=== PATIENT | female | born 1990 | race Caucasian/White ===

== ENCOUNTER 2021-03-30 22:36 | Emergency (ER) | payer OTHER, MEDICAID, SELFPAY ==
[2021-03-30 22:47] VITALS: BP 115/77; PULSE 79; RESP 14; TEMP 36.7; O2SAT 100
--- NOTE | 2021-03-31 00:30 | PC.NURSE ---
Pt remains in waiting room, cursing about wait time with another pt also waiting. no s/s of distress.
--- NOTE | 2021-03-31 00:37 | PC.NURSE ---
pt stated to this RN: I'm go take a walk outside. seen exiting ER without assist with steady, even, unassisted gait. No s/s of distress.
--- NOTE | 2021-03-31 01:15 | ED.GENADULT ---
HPI - General Adult General Chief complaint: Back Pain/Injury Stated complaint: back pain Time Seen by Provider: 03/31/21 01:13 Source: patient and RN notes reviewed Mode of arrival: ambulatory Limitations: no limitations History of Present Illness HPI narrative: Patient is a 31-year-old female who presents to emergency department for evaluation of left-sided back pain rating down the leg with history of sciatica patient denies any injury or trauma has been taking [id number] medications with minimal improvement presents per private vehicle in no distress does not appear uncomfortable patient does not have a primary care doctor at this time has had similar occurrences in the past Related Data Allergies Allergy/AdvReac Type Severity Reaction Status Date / Time iodine Allergy Unknown Rash Verified 03/30/21 23:54 SEAFOOD Allergy Severe Anaphylaxis Uncoded 03/30/21 23:54 Review of Systems Review of Systems: All systems reviewed & are unremarkable except as noted in HPI and below PMFSH Social History Social History (Updated 03/31/21 @ 01:16 by Enrique Fuentes PA-C) Smoking status: Never smoker Exam Narrative: Exam Narrative: GENERAL: Well-appearing, obese, and in no acute distress. HEAD: Normocephalic, atraumatic. EYES: PERRLA and EOMI. ENT: Nares clear, no rhinorrhea or epistaxis. Mucous membranes moist. NECK: Supple. No adenopathy or masses. CHEST: Clear to auscultation. No respiratory distress. No wheezes rales or rhonchi HEART: Regular rate and rhythm. No murmur heard. EXTREMITIES: Normal range of motion. No edema. Tenderness over the left SI joint SKIN: Warm, dry, no rash. NEURO: No focal deficits. Alert and oriented x3. Normal speech and gait. Cranial nerves II through XII grossly intact PSYCH: Normal mood and affect. Course Course Emergency Course: Patient evaluated in the emergency department for low back pain with history of sciatica will be discharged home with outpatient follow-up felt appropriate for outpatient reevaluation Vital Signs Vital signs: Vital Signs Temperature 98.0 F 03/30/21 22:47 Pulse Rate 79 03/30/21 22:47 Respiratory Rate 14 03/30/21 22:47 Blood Pressure 115/77 03/30/21 22:47 Pulse Oximetry 100 03/30/21 22:47 Temperature 98.0 F 03/30/21 22:47 Pulse Rate 79 07/19/21 22:47 Respiratory Rate 14 03/30/21 22:47 Blood Pressure 115/77 03/30/21 22:47 Pulse Oximetry 100 03/30/21 22:47 Medical Decision Making MDM Narrative Medical decision making narrative: Patients pain is positional in nature and localized to back without signs of cord compression or cauda equina based on neurological exam, skeletal exam and history. No fever or other significant factors to suggest osteomyelitis or spinal epidural abscess. No symptoms or signs to suggest pain is referred from abdominal or / cardiopulmonary sources. No pulsatile masses noted on exam. Patient ambulates with steady gait and is stable for outpatient management given case findings. Vital Signs Vital Signs: Vital Signs Temperature 98.0 F 03/30/21 22:47 Pulse Rate 79 03/30/21 22:47 Respiratory Rate 14 03/30/21 22:47 Blood Pressure 115/77 03/30/21 22:47 Pulse Oximetry 100 03/30/21 22:47 Temperature 98.0 F 03/30/21 22:47 Pulse Rate 79 03/30/21 22:47 Respiratory Rate 14 03/30/21 22:47 Blood Pressure 115/77 03/30/21 22:47 Pulse Oximetry 100 03/30/21 22:47 Discharge Plan Discharge Clinical Impression: Acute low back pain, Sciatica Patient Disposition: Home, Self-Care Condition: Stable Instructions: Antibiotic Form, Sciatica (ED) Additional Instructions: Medications as needed and prescribed. Limit lifting and bending. You may apply heat or cold to the area as needed. Follow up with your doctor for further care in the next 7 days. Contact your doctor or return to the emergency department if you develop problems with bladder or bowel functi
[2021-03-31 02:33] VITALS: BP 109/70; PULSE 84; RESP 20; O2SAT 96
[2021-03-31 03:39] VITALS: BP 102/69; PULSE 81; RESP 18; O2SAT 97
--- NOTE | 2021-03-31 04:15 | PC.NURSE ---
Attempting to print work note for pt. unable to print from triage printer. pt's primary RN notified that pt waiting for work note in wr.
--- NOTE | 2021-03-31 04:28 | PC.NURSE ---
Pt provied with work note.
== END 2021-03-31 03:45 | disposition home or self-care (01) ==
PROVIDERS: Emergency Provider Emergency Medicine
DX: M54.40 Lumbago with sciatica, unspecified side (principal)
CPT/HCPCS: 99283

== ENCOUNTER 2021-08-10 08:50 | Emergency (ER) | payer MEDICAID, SELFPAY ==
[2021-08-10 08:54] VITALS: BP 129/84; PULSE 100; RESP 18; TEMP 36.7; O2SAT 99
--- NOTE | 2021-08-10 10:01 | ED.GENADULT ---
HPI - General Adult General Chief complaint: Headache Stated complaint: Body Aches/headache. Time Seen by Provider: 08/10/21 09:16 Source: patient Mode of arrival: ambulatory Limitations: no limitations History of Present Illness HPI narrative: Patient is a 31-year-old female with chief complaint of headache, body aches that began on Tuesday. Patient reports that she was exposed at a job interview was appropriate 1 week ago. Patient states she does not have shortness of breath or chest pain. Patient reports that she has not seen oncology vaccination but has not received this taken. Patient reports she has a history of asthma however she has not had any wheezing, cough, shortness of breath or any other symptoms requiring use of her rescue inhaler. Patient states that she was told that she needs to be tested for Covid. Related Data Allergies Allergy/AdvReac Type Severity Reaction Status Date / Time iodine Allergy Unknown Rash Verified 08/10/21 09:04 SEAFOOD Allergy Severe Anaphylaxis Uncoded 08/10/21 09:04 Review of Systems Review of Systems: CONSTITUTIONAL: Reports body aches denies fever, chills, or sweats. EYES: Denies visual changes, redness, or discharge. ENT: Denies rhinorrhea, congestion, sore throat, or otalgia. CARDIOVASCULAR: Denies chest pain, palpitations, or edema. RESPIRATORY: Denies cough or dyspnea. GASTROINTESTINAL: Denies abdominal pain, nausea, vomiting, or diarrhea. GENITOURINARY: Denies dysuria or hematuria. SKIN: Denies rash or itching. MUSCULOSKELETAL: Denies back pain, joint pain, or myalgia. NEUROLOGIC: Reports headache denies numbness, dizziness, or weakness. PSYCHIATRIC: Denies anxiety or depression. [facility] Social History Social History (Updated 03/31/21 @ 01:16 by Enrique Fuentes PA-C) Smoking status: Never smoker Exam Narrative: GENERAL: Well-appearing, well-nourished, and in no acute distress. HEAD: Normocephalic, atraumatic. EYES: PERRLA and EOMI. NECK: Supple. No adenopathy or masses. Range of motion intact without rigidity. CHEST: Clear to auscultation. No respiratory distress. No wheezes rales or rhonchi. No tachypnea. No cough noted during exam. HEART: Regular rate and rhythm. No murmur heard. Normal peripheral pulses. EXTREMITIES: Normal range of motion. No edema. SKIN: Warm, dry, no rash. NEURO: No focal deficits. Alert and oriented x3. PSYCH: Normal mood and affect. Course Vital Signs Vital signs: Vital Signs Temperature 98.0 F 08/10/21 08:54 Pulse Rate 100 08/10/21 08:54 Respiratory Rate 18 08/10/21 08:54 Blood Pressure 129/84 08/10/21 08:54 Pulse Oximetry 99 08/10/21 08:54 Temperature 98.0 F 08/10/21 08:54 Pulse Rate 100 08/10/21 08:54 Respiratory Rate 18 08/10/21 08:54 Blood Pressure 129/84 08/10/21 08:54 Pulse Oximetry 99 08/10/21 08:54 Medical Decision Making MDM Narrative Medical decision making narrative: Discussed with patient the need to quarantine herself not being tested for Covid. Discussed the 24 to 72-hour window for Covid results. Instructed the patient on symptomatic treatment of her symptoms. Instructed patient return to emergency department if she develops any worsening or emergent symptoms including but not limited to shortness of breath, chest pain, persistent fevers vomiting or any other emergent symptoms. Patient does not have any fever, cough, hypoxia, shortness of breath or any symptoms that would require admission at this time. Vital Signs Vital Signs: Vital Signs Temperature 98.0 F 08/10/21 08:54 Pulse Rate 100 08/10/21 08:54 Respiratory Rate 18 08/10/21 08:54 Blood Pressure 129/84 08/10/21 08:54 Pulse Oximetry 99 08/10/21 08:54 Temperature 98.0 F 08/10/21 08:54 Pulse Rate 100 08/10/21 08:54 Respiratory Rate 18 08/10/21 08:54 Blood Pressure 129/84 08/10/21 08:54 Pulse Oximetry 99 08/10/21 08:54 Discharge Plan Discharge Clinical Impression: Contact with a
[2021-08-10 20:05] LABS: SARS-CoV-2 RNA PCR Negative
== END 2021-08-10 10:31 | disposition home or self-care (01) ==
PROVIDERS: Physician Assistant; Emergency Provider Emergency Medicine
DX: R51.9 Headache, unspecified (principal); Z20.822 Contact with and (suspected) exposure to COVID-19; J45.909 Unspecified asthma, uncomplicated
CPT/HCPCS: 99283; C9803; U0003; U0005

== ENCOUNTER 2022-04-29 02:12 | Emergency (ER) | payer BC, SELFPAY ==
--- NOTE | ~2022-04-29 | CT_ITS ---
EXAMINATION: CT abdomen pelvis wo con DATE: 04/29/2022 04:15 INDICATION: Right-sided abdominal pain TECHNIQUE: Computed tomography (CT) of the abdomen and pelvis was performed without intravenous contr ast. The dose-length product (DLP) was 1324.97 mGy-cm. Automated exposure control and iterative recon struction technique were employed. COMPARISON: 04/18/2009 FINDINGS: The lung bases are clear. The heart size is normal. The liver, spleen, pancreas, gallbladde r, and adrenal glands are normal. There is a 4 mm nonobstructing stone of the right kidney upper pole . There is cortical scarring peripheral to the stone. The left kidney is unremarkable. No stones are present in the ureters or bladder. There is no hydronephrosis or hydroureter. The appendix is normal. No pathologically enlarged abdominal or pelvic lymph nodes are identified. There is no free intraper itoneal gas or evidence of bowel obstruction. IMPRESSION: 1. Nonobstructing right nephrolithiasis. Reviewed, dictated and finalized at location A.
[2022-04-29 02:14] VITALS: BP 117/89; PULSE 86; RESP 18; TEMP 36.4; O2SAT 100
--- NOTE | 2022-04-29 02:23 | ED.ABDPAIN ---
HPI - Abdominal Pain General Chief Complaint: Abdominal Pain Stated Complaint: right side pain Time Seen by Provider: 04/29/22 02:15 Source: RN notes reviewed History of Present Illness HPI narrative: Patient presents emergency department from home for abdominal pain. Patient states abdominal pain began 2 days ago. The pain is located on the right side the abdomen and goes into the right flank is described as sharp and stabbing in nature she denies any fevers or chills nausea vomiting diarrhea or any other symptoms that she has been taking ibuprofen for the pain Related Data Allergies Allergy/AdvReac Type Severity Reaction Status Date / Time iodine Allergy Unknown Rash Verified 04/29/22 02:17 SEAFOOD Allergy Severe Anaphylaxis Uncoded 04/29/22 02:17 Review of Systems Review of Systems: Gen.: Denies fevers or chills ENT: Denies congestion Respiratory: Denies shortness of breath or cough CV: Denies chest pain or palpitations GI: See HPI denies burning, urgency, frequency or hematuria Musculoskeletal: Denies back pain or muscle pain Neuro: Denies numbness, tingling, weakness or focal weakness Skin: Denies rash Except as documented, all other systems reviewed and negative [facility] Past Medical History Medical History (Updated 04/29/22 @ 04:57 by Forrest Sanchez DO) Patient denies significant medical history Social History Social History Smoking status: Never smoker Exam Narrative: APPEARANCE: No acute distress, nontoxic, resting in bed HEENT: Normocephalic, atraumatic, OMM RESPIRATORY: No respiratory distress, clear to auscultation bilaterally with no rhonchi wheezing or rales CARDIOVASCULAR: RRR s murmur ABDOMINAL: Soft nondistended tender palpation right upper quadrant right lower quadrant no tenderness in left lower quadrant left lower quadrant no rebound or guarding MUSCULOSKELETAl: Moves all extremities. No clubbing, cyanosis or edema. NEURO: Awake and alert. Following commands, speech normal, no focal deficits SKIN:: Warm, dry. Normal Color PSYCHIATRIC: Normal affect/mood Course Course Emergency Course: Patient does have blood in her urine states she is finishing her menstrual cycle patient states that they are feeling much better at this time. States abdominal pain has resolved. Repeat abdominal exam shows the patient's abdomen to be soft and nontender. Discussed with patient results of workup and diagnosis. Discussed need for follow-up with primary care physician, reasons to return to the emergency department in proper use of medication. Patient understands and agrees to current treatment plan Vital Signs Vital signs: Vital Signs Temperature 97.6 F 04/29/22 02:14 Pulse Rate 86 04/29/22 02:14 Respiratory Rate 18 04/29/22 02:14 Blood Pressure 117/89 04/29/22 02:14 Pulse Oximetry 100 04/29/22 02:14 Oxygen Delivery Room Air 04/29/22 02:14 Temperature 97.6 F 04/29/22 02:14 Pulse Rate 86 04/29/22 02:14 Respiratory Rate 18 04/29/22 02:14 Blood Pressure 117/89 04/29/22 02:14 Pulse Oximetry 100 04/29/22 02:14 Oxygen Delivery Room Air 04/29/22 02:14 MDM - Abdominal Pain MDM Narrative Medical decision making narrative: Patient's abdomen is soft without significant pain or signs of surgical abdomen on serial exams. Lab and x-ray evaluations are reviewed and patient is felt to be a reasonable candidate for outpatient management. Patient was instructed as to limitations of x-ray and laboratory evaluation and encouraged to return to ED or primary physician for repeat exam in 12 hours if continued or worsening pain Lab Data Result diagrams: 04/29/22 03:01 04/29/22 03:01 Labs: Lab Results 04/29/22 04/29/22 04/29/22 Range/Units 03:01 03:01 03:57 WBC 11.2 H (4.5-10.0) K/mm3 RBC 4.73 (4.2-5.4) M/mm3 Hgb 12.5 (12.0-15.0) g/dL Hct 40.2 (37.0-47.0) % MCV 85.0
[2022-04-29] MEDS: SODIUM CHLORIDE 0.9% IV 1,000 ML 999 ML IV CONT (03:04)
[2022-04-29 03:16] LABS: Basophils Percent Auto 0.4 % (0.2-1.2); Eosinophils Absolute Auto 0.1 K/mm3 (0-0.3); Eosinophils Percent Auto 0.7 % (0-4.4); Hematocrit 40.2 % (37.0-47.0); Hemoglobin 12.5 g/dL (12.0-15.0); Immature Granulocyte Absolute 0.04 K/mm3 (0.00-0.031); Immature Granulocyte Percent A 0.4 % (0-0.5); Lymphocytes Absolute Auto 2.99 K/mm3 (0.9-3.2); Lymphocytes Percent Auto 26.7 % (18.3-44.2); Mean Corpuscular HGB Conc 31.1 g/dl (32-36); Mean Corpuscular Hemoglobin 26.4 pg (26-34); Monocytes Absolute Auto 0.6 K/mm3 (0.1-0.6); Monocytes Percent Auto 5.2 % (2.6-8.5); Neutrophils Absolute Auto 7.5 K/mm3 (1.3-6.7); Neutrophils Percent Auto 66.6 % (45.5-73.1); Platelet Count Result 356 k/mm3 (150-375); Red Blood Count 4.73 M/mm3 (4.2-5.4); Red Cell Distribution Width 14.2 % (11.5-14.5); White Blood Count 11.2 K/mm3 (4.5-10.0)
[2022-04-29 03:37] LABS: Alanine Aminotransferase 28 U/L (6-35); Albumin Level 5.1 g/dL (3.5-5.1); Alkaline Phosphatase 90 U/L (38-126); Anion Gap 12 mmol/L (8-16); Aspartate Amino Transferase 41 U/L (14-36); Bilirubin,Total 0.6 mg/dL (0.2-1.3); Blood Urea Nitrogen 14 mg/dL (7-17); Calcium 9.3 mg/dL (8.4-10.2); Carbon Dioxide 26 mmol/L (22-30); Chloride 104 mmol/L (98-107); Estimated CRCL calculation 101 ml/min; Estimated Glomerular Filt Rate > 60; Glucose 106 mg/dL (65-110); Lipase 59 U/L (23-300); Potassium 4.2 mmol/L (3.4-5.0); Sodium 142 mmol/L (137-145)
[2022-04-29 04:10] LABS: Appearance Urine Clear (Clear); Bilirubin Urine 2+ (Negative); Blood Urine 3+ (Negative); Glucose Urine UA Negative (Negative); Ketones Urine 1+ mg/dL (Negative); Leukocyte Esterase Ur Negative LEU/UL (Negative); Nitrate Urine Negative (Negative); Protein Urine 2+ mg/dL (Negative); Specific Grav Ur >= 1.030 (1.001-1.035); Urobilinogen Urine 0.2 mg/dL (<2.0); pH Urine 5.5 (5.0-9.0)
[2022-04-29 04:16] LABS: Add Urine Microscopic? YES; Color Urine Light Red (Yellow)
[2022-04-29 04:23] LABS: Bacteria Urine Trace /hpf; Mucus Urine Moderate /lpf; RBC Urine >75 /hpf (0-2); Squamous Epithelial Cell Urine Many /hpf (Few)
[2022-04-29 05:03] VITALS: BP 99/70; PULSE 67; RESP 16; O2SAT 98
== END 2022-04-29 05:16 | disposition home or self-care (01) ==
PROVIDERS: Emergency Provider Emergency Medicine
DX: R10.9 Unspecified abdominal pain (principal)
CPT/HCPCS: 36415; 74176; 80053; 81001; 81025; 83690; 85025; 87077; 87086; 87088; 96361; 96374; 99284; J0131; J7030

== ENCOUNTER 2022-10-13 08:26 | Emergency (ER) | payer BC, SELFPAY ==
--- NOTE | ~2022-10-13 | XR_ITS ---
EXAMINATION: XR knee RT min 4V DATE: 10/13/2022 13:07 INDICATION: Right knee pain TECHNIQUE: Four views of the right knee were obtained. COMPARISON: None. FINDINGS: Alignment is normal. No fracture or osteochondral lesion. There is mild tricompartmental os teoarthritis characterized by tiny marginal osteophytes. No joint effusion/synovitis. Soft tissues a re unremarkable. IMPRESSION: 1. No acute osseous abnormality. Reviewed, dictated and finalized at location B. [employer]
[2022-10-13 08:27] VITALS: BP 140/86; PULSE 98; RESP 16; TEMP 37; O2SAT 100
--- NOTE | 2022-10-13 09:06 | PC.NURSE ---
KAYLYNN FROM DR GILL FOR MOTRIN 600MG PO X1
--- NOTE | 2022-10-13 11:08 | ED.LOWEXIN ---
HPI - Extremity Injury (Lower) General Chief Complaint: Extremity Injury, Lower Stated Complaint: right knee pain Time Seen by Provider: 10/13/22 08:38 Source: RN notes reviewed History of Present Illness HPI Narrative: Patient presents emergency department from home for right knee pain. Patient states that symptoms began approximately 2 days ago. The pain is located to the right medial knee and does not radiate described as aching in nature states the pain is worse with bending and with walking. She denies any known injury. She denies any swelling of the knee she denies any redness of the knee she denies any pain in the hip or ankle states she has sprained that knee before in the past she states she did not take anything for pain today denies any numbness or tingling Related Data Allergies Allergy/AdvReac Type Severity Reaction Status Date / Time iodine Allergy Unknown Rash Verified 04/29/22 02:17 SEAFOOD Allergy Severe Anaphylaxis Uncoded 04/29/22 02:17 Review of Systems Review of Systems: Gen.: Denies fevers or chills Musculoskeletal: See HPI Neuro: Denies numbness, tingling, weakness Skin: Denies rash Endo: Denies DM PMFSH Past Medical History Medical History Patient denies significant medical history Social History Social History Smoking status: Never smoker Exam Narrative: APPEARANCE: No acute distress, nontoxic, resting in bed Eyes: EOMI HEENT: Normocephalic, atraumatic, RESPIRATORY: No respiratory distress MUSCULOSKELETAl: Tender palpation over the right medial knee no swelling or ecchymosis present no overlying erythema no tenderness over the anterior lateral or posterior knee pain with flexion of the knee greater than 45 degrees no tenderness of the right ankle or hip dorsalis pedis pulse 2+ neurovascular intact NEURO: Awake and alert. Following commands, speech normal, no focal deficits SKIN:: Warm, dry. Normal Color no rash or lesions Course Course Emergency Course: Discussed with patient results of workup and diagnosis. Discussed need for follow-up with primary care, proper use of medication, and reasons to return to the emergency department. Patient understands and agrees to current treatment plan Vital Signs Vital signs: Vital Signs Temperature 98.6 F 10/13/22 08:27 Pulse Rate 98 10/13/22 08:27 Respiratory Rate 16 10/13/22 08:27 Blood Pressure 140/86 10/13/22 08:27 Pulse Oximetry 100 10/13/22 08:27 Temperature 98.6 F 10/13/22 08:27 Pulse Rate 98 10/13/22 08:27 Respiratory Rate 16 10/13/22 08:27 Blood Pressure 140/86 10/13/22 08:27 Pulse Oximetry 100 10/13/22 08:27 MDM - Extremity Injury (Lower) MDM Narrative Medical decision making narrative: Patient?s injury is consistent with muscular skeletal etiology. No signs of neurologic or vascular compromise to exam. Compartments are soft without signs of compartment syndrome. Pain is consistent with exam and injury Imaging Data Radiologist's impression: Right knee x-ray read by radiology during downtime shows no acute process Discharge Plan Discharge Clinical Impression: Right knee sprain Patient Disposition: Home, Self-Care Condition: Stable Instructions: Antibiotic Form, Knee Sprain (ED) Additional Instructions: Return for increasing pain numbness or tingling the extremities or any other symptoms of concern Prescriptions: New ibuprofen 600 mg tablet 600 mg PO TID PRN (Reason: pain) Qty: 14 0RF No Action cyclobenzaprine 10 mg tablet 10 mg PO TID PRN (Reason: muscle spasm) Qty: 14 0RF lidocaine 5 % adhesive patch,medicated 1 patch topical DAILY Qty: 1 0RF Rx Instructions: leave on most painful area for up to 12 hrs, dispense one box ibuprofen [IBU] 600 mg tablet 600 mg PO QID PRN (Reason: fever or pain) Qty: 7 0RF famotidine [Pepcid AC] 20 mg
[2022-10-13 11:42] VITALS: BP 140/90; PULSE 80; RESP 17; O2SAT 98
== END 2022-10-13 11:43 | disposition home or self-care (01) ==
PROVIDERS: Emergency Provider Emergency Medicine
DX: S83.91XA Sprain of unspecified site of right knee, initial encounter (principal); X58.XXXA Exposure to other specified factors, initial encounter
CPT/HCPCS: 73564; 99283

== ENCOUNTER 2024-09-26 07:25 | Emergency (ER) | payer BC, SELFPAY ==
[2024-09-26 07:30] VITALS: BP 115/73; PULSE 92; RESP 18; TEMP 36.4; O2SAT 98
--- NOTE | 2024-09-26 09:21 | ED_ITS ---
HPI - Fall General Chief Complaint: Fall Stated Complaint: 32 weeks , fell on ice Time Seen by Provider: 09/26/24 08:02 History of Present Illness HPI Narrative: Patient is a 34-year-old female who is 32 weeks that presents ER after a slip and fall. Slipped falling backwards directly onto her back. Did not strike her head or lose consciousness. She has been feeling the baby move. She has no vaginal bleeding. 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 She d id take some Tylenol earlier today. No additional concerns. Denies any lower extremity numbness or weakness. No saddle anesthesia. She did not land on her abdomen or strike her abdomen. Related Data Allergies Allergy/AdvReac Type Severity Reaction Status Date / Time iodine Allergy Unknown Rash Verified 04/29/22 02:17 SEAFOOD Allergy Severe Anaphylaxis Uncoded 04/29/22 02:17 Review of Systems Constitutional: Constitutional: Reports no additional constitutional complaints Musculoskeletal: Musculoskeletal: Reports back pain, Denies arthralgias and Denies joint swelling Integumentary/Breasts: Skin/Breast: Reports system reviewed and no additional complaints, except as docu Neurologic: Reports system reviewed and no additional complaints, except as documented PMFSH Past Medical History Medical History Patient denies significant medical history Social History Social History Smoking status: Never smoker Exam Narrative: GENERAL: Well-appearing, well-nourished, and in no acute distress. HEAD: Normocephalic, atraumatic. ENT: Mucous membranes moist. CHEST: Clear to auscultation. No respiratory distress. HEART: Regular rate and rhythm. Normal peripheral pulses. ABDOMEN: Soft, nontender, gravid uterus palpated above the umbilicus consistent with reported gestation. movement palpated. Back: No midline tenderness the T/L-spine. Mild paraspinal muscle tenderness on left side near L2. No bruising or abrasions. EXTREMITIES: Normal range of motion. No edema. NEURO: Alert and oriented x3. PSYCH: Normal mood and affect. Course Course Emergency Course: Patient given reassurance. heart tones identified, feel heart rate in the 170's. Recommend Tylenol and rest for home. Follow-up with Ob as needed. Imaging deferred due to and desire to not expose fetus to radiation. Vital Signs Vital signs: Vital Signs Temperature 97.6 F 09/26/24 07:30 Pulse Rate 92 09/26/24 07:30 Respiratory Rate 18 09/26/24 07:30 Blood Pressure 115/73 09/26/24 07:30 Pulse Oximetry 98 09/26/24 07:30 Oxygen Delivery Room Air 09/26/24 07:30 Temperature 97.6 F 09/26/24 07:30 Pulse Rate 92 09/26/24 07:30 Respiratory Rate 18 09/26/24 07:30 Blood Pressure 115/73 09/26/24 07:30 Pulse Oximetry 98 09/26/24 07:30 Oxygen Delivery Room Air 09/26/24 07:30 Discharge Plan Discharge Clinical Impression: Low back pain Patient Disposition: Home, Self-Care Condition: Stable Instructions: Back Pain (ED) Additional Instructions: Please return to the emergency department if you develop severe pain that is not controlled by pain medications or if you are unable to walk because of pain or weakness. Return to the emergency department immediately if you develop fevers, loss of bowel or bladder control (dribbling of urine or having accidents you wouldn't normally have), inability to urinate, numbness of your genital or anal area, or weakness/numbness of your legs or arms as these could all be signs of a serious medical emergency. Take Tylenol 650 mg every 6 hours over the next 3-5 days for your pain. Patient Language: Albanian Prescriptions: No Action cyclobenzaprine 10 mg tablet 10 mg PO TID PRN (Reason: muscle spasm) Qty: 14 0RF lidocaine 5 % adhesive patch,medicated 1 patch topical DAILY Qty: 1 0RF Rx Instructions: leave on most painful area for up to 12 hrs, dispense one box ibuprofen [IBU] 600 mg tablet 600 mg PO QID PRN (Reason: fever or pain) Qty: 7 0RF famotidine [Pepcid AC] 20 mg tablet 20 mg PO DAILY Qty: 14 0RF dicyclomine 20 mg tablet 20 mg PO TID PRN (Reason: Abdominal cramping) Qty: 10 0RF ibuprofen 600 mg tablet 600 mg PO TID PRN (Reason: pain) Qty: 14 0RF Follow-up/Referrals: PHYSICIAN,[employer] [Primary Care Provider] - Robert Block MD [Physician] - 1 Week Stand Alone Forms: Work/School Release IP
== END 2024-09-26 10:39 | disposition home or self-care (01) ==
PROVIDERS: Emergency Provider Emergency Medicine
DX: M54.50 Low back pain, unspecified (principal); O9A.213 Injury, poisoning and certain other consequences of external causes complicating pregnancy, third trimester; Z3A.32 32 weeks gestation of pregnancy; W01.0XXA Fall on same level from slipping, tripping and stumbling without subsequent striking against object, initial encounter
CPT/HCPCS: 99282

== ENCOUNTER 2024-10-19 15:36 | Observation (INO) | payer BC, SELFPAY ==
[2024-10-19] VITALS (8 sets, daily range): BP systolic 121–143; BP diastolic 77–90; PULSE 77–89; BMI 46.6
--- OUTSIDE RECORDS SUMMARY | 2024-10-19 15:47 | XMS_ITS | Clinical Summary ---
Author Organization [facility] Address [address] [place] [phone] Phone Care Team Providers Care Chief Architect Name Role Phone Provider, None Primary Care Provider Unavailabl e Social History Tobacco Use Types Packs/Day Years Used Date Smoking Tobacco: Never Assessed Comments Unknown Sex and Gender Information Value Date Recorded Sex Assigned at Not on file Legal Sex Female 11:38 AM CDT Gender Identity Not on file Sexual Orientation Not on file Plan of Treatment Health Maintenance Due Date Last Done Comments Hepatitis C Virus (HCV) Screening 1992 TdaP Immunization 1992 Hepatitis B Immunization (1 of 3 - 19+ 3-dose series) 01/04/2011 Pap Smear 01/04/2013 Cervical Cancer Screening (CCS) 01/04/2022 HPV/Cotest 01/04/2022 Influenza Immunization (#1) 2024 SARS-COV-2 Immunization ( season) 2024 Respiratory Syncytial Virus (RSV) Immunization (Adult) (1 - 1-dose 75+ series) 01/04/2067 Meningococcal Immunization (ACWY) Aged Out No longer eligible based on patient's age to complete this topic Pneumococcal Immunization Combined Aged Out No longer eligible based on patient's age to complete this topic Rotavirus Immunization Aged Out No lo nger eligible based on patient's age to complete this topic Care Teams Chief Architect Relationship Specialty Start Date End Date Provider, Alejandrina SHERWOOD PCP - General 05/30/24
--- OUTSIDE RECORDS SUMMARY | 2024-10-19 15:48 | XMS_ITS | Data Portability ---
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 Not available 09/10/2024 11:26:08 10/02/2024 10/02/2024 32 6/7 weeks, good spirits Not available 10/02/2024 14:55:07 10/16/2024 10/16/2024 34 6/7 weeks first baby elevated BP today ; to L&D for BP check Not available 10/16/2024 11:30:56 Plan of Treatment Reminders Order Date Submit Date Provider Last Modified By Organization Details Last Modified Time Details Appointments OB 15 2024 10:45A M Oj Garrett MD Not available Not available Not available Lab urinalysi s, dipstick 2023 024 In-Office Order, Internal Use Only DO Not Attach Compendium DO Not Attach Compendium, Do Not Delete/merge, [id number] 07/23/2024 12:06:03 urinalysi s, dipstick 2023 024 In-Office Order, Internal Use Only DO Not Attach Compendium DO Not Attach Compendium, Do Not Delete/merge, [id number] 08/20/2024 11:24:59 urinalysi s, dipstick 2023 024 In-Office Order, Internal Use Only DO Not Attach Compendium DO Not Attach Compendium, Do Not Delete/merge, [id number] 09/10/2024 11:26:09 urinalysi s, dipstick 2024 025 In-Office Order, Internal Use Only DO Not Attach Compendium DO Not Attach Compendium, Do Not Delete/merge, [id number] 10/02/2024 14:55:08 urinalysi s, dipstick 2024 025 In-Office Order, Internal Use Only DO Not Attach Compendium DO Not Attach Compendium, Do Not Delete/merge, [id number] 10/16/2024 11:30:57 streptoco ccus group B DNA 2024 025 [facility] [address], [address], [address], 10/18/2024 16:13:47 Referral None recorded. Procedures None recorded. Surgeries None recorded. Imaging None recorded. Medication Orders None recorded. Patient TargetsNo targets recorded. Patient Instructions Encounter Date Encounter Id Patient Instructions Last Modified By Organization Details Last Modified Time 10/16/2024 [id number] tetanus and diphtheria booster: care instructions Not available 10/16/2024 11:30:57 Reason for Referral None Reported. Results Created Date Observation Date Name Description Value Unit Range Abnormal Flag Note LastModifiedBy Organization Detail LastModifiedTime 07/02/2007/02/2024 urina lysis , dipst ick Protein Negati ve Not Available In-Office Order Internal Use Only DO Not Attach Compendium DO Not Attach Compendium, Do Not Delete/merge, [id number] 07/02/2024 12:03:10 07/02/20 24 07/02/2024 urina lysis , dipst ick Glucose Negati ve Not Available In-Office Order Internal Use Only DO Not Attach Compendium DO Not Attach Compendium, Do Not Delete/merge, [id number] 07/02/2024 12:03:10 07/23/20 24 07/23/2024 urina lysis , dipst ick Protein Negati ve Not Available In-Office Order Internal Use Only DO Not Attach Compendium DO Not Attach Compendium, Do Not Delete/merge, [id number] 07/19/2024 13:47:09 07/23/20 24 07/23/2024 urina lysis , dipst ick Glucose Negati ve Not Available In-Office Order Internal Use Only DO Not Attach Compendium DO Not Attach Compendium, Do Not Delete/merge, [id number] 07/19/2024 13:47:09 08/20/20 24 08/21/2024 HGB+H CT hemoglobin 10.4 g/dL 11.1-1 5.9 below low normal Not Available [facility] ([facility]) [address] [facility], [place], [address], 08/21/2024 07:14:16 08/20/20 24 08/21/2024 HGB+H CT hematocrit 32.7 % 34.0-4 6.6 below low normal Not Available [facility] ([facility]) [address] [place], [address], 08/21/2024 07:14:16 08/20/20 24 08/21/2024 GEST. DIABE AMAN 1-HR SCREE N gestational diabetes screen 167 mg/dL 70-139 above high normal Accor ding to ADA, a gluco se thres hold of >139 mg/dL after 50-gr am load ident ifies appro ximat dinah 80% of women with gesta gabriela l diabe aman melli tus, while the sensi tivit y is furth er incre ased to appro ximat dinah 90% by a thres hold of >129 mg/dL . Not Available [facility] ([facility]) [address] [facility], [place], [address], 08/21/2024 11:14:17 08/20/20 24 08/21/2024 ANTIB HARPAL SCREE N antibody screen NEGATI VE negati ve Not Available [facility] ([facility]) [address] [facility], [place], [address], 08/21/2024 11:14:18 08/20/20 24 08/21/2024 RPR, RFX QN RPR/C ONFIR M TP RPR NON REACTI VE nonrea ctive Not Available [facility] ([facility]) [address] [facility], [place], [address], 08/21/2024 11:14:20 08/20/20 24 08/21/2024 HIV AB/P2 4 AG WITH REFLE X HIV Ab/P24 Ag screen NON REACTI VE nonrea ctive HIV-1 /HIV- 2 antib odies and HIV-1 p24 antig en were NOT detec anne marie. There is no labor atory evide nce of HIV infec tion. HIV Negat gordo Not Available [facility] ([facility]) [address] [facility], [place], [address], 08/21/2024 11:14:21 08/20/20 24 08/20/2024 urina lysis , dipst ick Protein Negati ve Not Available In-Office Order Internal Use Only DO Not Attach Compendium DO Not Attach Compendium, Do Not Delete/merge, [id number] 08/16/2024 14:29:15 08/20/20 24 08/20/2024 urina lysis , dipst ick Glucose Negati ve Not Available In-Office Order Internal Use Only DO Not Attach Compendium DO Not Attach Compendium, Do Not Delete/merge, [id number] 08/16/2024 14:29:15 09/10/20 24 09/10/2024 urina lysis , dipst ick Protein 30 Not Available In-Office Order Internal Use Only DO Not Attach Compendium DO Not Attach Compendium, Do Not Delete/merge, [id number] 09/06/2024 15:20:08 09/10/20 24 09/10/2024 urina lysis , dipst ick Glucose Negati ve Not Available In-Office Order Internal Use Only DO Not Attach Compendium DO Not Attach Compendium, Do Not Delete/merge, [id number] 09/06/2024 15:20:08 10/02/19 25 10/02/2024 urina lysis , dipst ick Protein Trace Not Available In-Office Order Internal Use Only DO Not Attach Compendium DO Not Attach Compendium, Do Not Delete/merge, [id number] 09/28/2024 16:04:56 10/02/19 25 10/02/2024 urina lysis , dipst ick Glucose Negati ve Not Available In-Office Order Internal Use Only DO Not Attach Compendium DO Not Attach Compendium, Do Not Delete/merge, [id number] 09/28/2024 16:04:56 10/16/19 25 10/18/2024 STREP GP B ANDREE strep gp B ANDREE NEGATI VE negati ve Cente rs for Disea se Contr ol and Preve ntion (CDC) and Son[facility] can Congr ess of Obste trici ans and Gynec ologi sts (ACOG ) guide lines for preve ntion of perin atal group B strep tococ long (GBS) disea se speci fy co-co llect ion of a vagin al and recta l swab speci men to maxim ize sensi tivit y of GBS detec tion. Per the CDC and ACOG, swabb ing both the lower vagin a and rectu m subst antia lly incre ases the yield of detec tion jack red with sampl ing the vagin a alone . Penic illin G, ampic illin , or cefaz vicki are indic ated for intra partu m proph ylaxi s of perin atal GBS colon izati on. Refle x susce ptibi lity testi ng shoul d be perfo rmed prior to use of clind amyci n only on GBS isola aman from penic illin -[place] rgic women who are consi dered a high risk for anaph ylaxi s. Treat ment with vanco mycin witho ut addit ional testi ng is warra nted if resis tance to clind tosin n is noted . Not Available [facility] ([facility]) [address] [facility], [place], [address], 10/18/2024 16:13:47 10/16/19 25 10/16/2024 urina lysis , dipst ick Protein Trace Not Available In-Office Order Internal Use Only DO Not Attach Compendium DO Not Attach Compendium, Do Not Delete/merge, [id number] 10/12/2024 14:45:34 10/16/19 25 10/16/2024 urina lysis , dipst ick Glucose Negati ve Not Available In-Office Order Internal Use Only DO Not Attach Compendium DO Not Attach Compendium, Do Not Delete/merge, [id number] 10/12/2024 14:45:34 07/25/20 24 07/10/2024 US, obste tric, mater nal evalu ation + anato my No observ ation record ed. [facility] ([facility]) [address] [place], [address], 07/26/2024 13:53:40 07/26/20 24 07/18/2024 US, obste tric, mater nal evalu ation + anato my No observ ation record ed. [facility] ([facility]) [address] [place], [address], 07/26/2024 13:26:35 07/26/20 24 07/10/2024 US, obste tric, mater nal evalu ation + anato my No observ ation record ed. [facility] ([facility]) [address] [place], [address], 07/26/2024 13:26:44 Result Notes None recorded. Problems Name Problem SNOMED Code Status Onset Date Resolution Date Notes Provider Name and Address Organization Details Recorded Time 08512406 Active 2023 PAUL Pen[place], [place] - [facility] 09:44:30 Anemia 495161141 Completed 202304/18/2024 Serina Obrien RMA [place] - [facility] 4 10:12:31 Asthma 258850387 Active 2023 Serina Obrien RMA [place] [facility] 4 10:12:57 Polycystic ovary syndrome 667500268 Active 2023 Serina Obrien [place] [facility] 4 10:14:49 Urinary tract infection in 001614389 Active Serina Obrien RMA [place] [facility] 5 14:35:00 Localized eruption of skin 076159388 Active Serina Obrien R[place] [facility] 5 14:35:31 Problem Notes None recorded. Procedures Surgical History Date Name Laterality Status Provider Name and Address Organization Details Recorded Time 04/18/20 Date of Last Pap Smear completed PAUL Penaloza [place] [facility] 05/10/2024 09:55:50 Tonsillectomy completed SUMI PenalozaA [place] [facility] 04/18/2024 10:06:36 Imaging Results Imaging Date Name Status LastModified by Organiz ation Details LastModified Time 07/10/2024 US, obstetric, maternal evaluation + anatomy completed [facility] ([facility]) [address] [place], [address], 07/26/2024 13:53:40 07/18/2024 US, obstetric, maternal evaluation + anatomy completed [facility] ([facility]) [address] [place], [address], 07/26/2024 13:26:35 07/10/2024 US, obstetric, maternal evaluation + anatomy completed [facility] ([facility]) [address] [place], [address], 07/26/2024 13:26:44 Procedure Notes None recorded. Medical Equipment None Reported. Allergies Allergen ID Allergen Name Allergen Category Reaction Reaction Severity Criticality Documentation Date Start Date Code Code System Note Provider Name and Address Organization Details Recorded Time 568900 iodine medicatio n Not available Not available Not available 04/18/2024 5933 RxNorm Not Available Not Available Not Available Medications Name Sig Start Date Stop Date Status Note LastModified by Organization Details LastModified Time hydrocortis one 0.5 % topical cream active Not Available Not Available Not Available clindamycin HCl 300 mg capsule 04/18 completed Not Available Not Available Not Available cephalexin 500 mg capsule 05/10 completed Not Available Not Available Not Available diphenhydra mine 25 mg capsule 25 mg by oral route. 08/11 completed Not Available Not Available Not Available Banophen 25 mg tablet active Not Available Not Available No t Available albuterol sulfate HFA 90 mcg/actuati on aerosol inhaler 2 pufs by inhalatio n route. active Not Available Not Available No t Available naproxen 500 mg tablet 04/18 completed Not Available Not Available Not Available nitrofurant oin monohydrate /macrocryst als 100 mg capsule 100 mg by oral route. active Not Available Not Available No t Available FeroSul 325 mg (65 mg iron) tablet TAKE 1 TABLET BY MOUTH EVERY DAY FOR 30 DAYS active Not Available Not Available No t Available Vitals Date Recorded Body height Body mass index (BMI) Body weight Systolic blood pressure Diastolic blood pressure Provider Name and Address Organization Details Last Updated DateTime 07/23/2024 160.02 cm 45.5 kg/m2 521284.3 42699 g 126 mm[Hg] 80 mm[Hg] PAUL Penaloza [place] - [facility] 4 11:54:51 Date Recorded Body height Body mass index (BMI) Body weight Systolic blood pressure Diastolic blood pressure Provider Name and Address Organization Details Last Updated DateTime 08/20/2024 160.02 cm 45.7 kg/m2 596928.8 3146 g 129 mm[Hg] 85 mm[Hg] PAUL Penaloza - [facility] 4 11:16:12 Date Recorded Body height Body weight Systolic blood pressure Diastolic blood pressure Provider Name and Address Organization Details Last Updated DateTime 09/10/2024 160.02 cm 349152.67 0174 g 120 mm[Hg] 83 mm[Hg] PAUL Penaloza [facility] 09/10/2024 11:12:55 Date Recorded Body height Body mass index (BMI) Body weight Systolic blood pressure Diastolic blood pressure Provider Name and Address Organization Details Last Updated DateTime 10/02/2024 160.02 cm 46.1 kg/m2 664486.3 0359 g 132 mm[Hg] 86 mm[Hg] Serina Obrien [place] - [facility] 14:44:46 Date Recorded Body height Body mass index (BMI) Body weight Systolic blood pressure Diastolic blood pressure Provider Name and Address Organization Details Last Updated DateTime 10/16/2024 160.02 cm 46.8 kg/m2 726287.3 8568 g 148 mm[Hg] 87 mm[Hg] Serina Obrien Crist[place] - [facility] 11:16:49 Social History Question Answer Notes LastModified by Organizat ion Details LastModified Time Tobacco Smoking Status Never Smoker PAUL Penaloza [place], [place] - [facility] 04/18/2024 10:06:09 What Is Your Level Of Alcohol Consumption? None Information not available 04/18/2024 What Was The Date Of Your Most Recent Tobacco Screening? 04/18/2024 Information not available 04/18/2024 How Many Children Do You Have? 0 Information not available 04/18/2024 Do You Use Protection During Sex? No Information not available 04/18/2024 What Is Your Relationship Status? Single Information not available 04/18/2024 Are You Sexually Active? Yes Information not available 04/18/2024 Do You Use Any Illicit Or Recreational Drugs? No Information not available 04/18/2024 Has Tobacco Cessation Counseling Been Provided? No Information not available 04/18/2024 Do You Or Have You Ever Used Any Other Forms Of Tobacco Or Nicotine? No Information not available 04/18/2024 Sex: Female Functional Status None recorded. Mental Status None recorded. Family History Relationship Description Onset Age of this Age Resolved Age Notes LastModified by Organization Details LastModified Time Mother Malignant tumor of breast cgracema Not available 2023 10:05:56 Maternal Grandmother Malignant tumor of breast cgracema Not available 2023 10:05:56 Medical History No medical history recorded. Gynecological History Statement/Question Response Abnormal Pap N Flow Heavy Sexually Active? Y On BCP's at Conception? N Menses Monthly Y STIs/STDs N Date of Last Pap Smear 04/18/2024 Sexual Problems? N Current Control Method Age at Menarche 13 LMP Definite Obstetrics History GPAL:G 1 P 0 0 0 0 Immunizations Vaccine Type Date Status Note Provider Nam e and Address Organization Details Recorded Time Tdap 10/16/2024 completed Oj Garrett MD Attn: [employer] [place], [address], [facility] - [facility] 10/16/2024 11:30:57 Past Encounters Encounter ID Performer Location Encounter Start Date Encounter Closed Date Diagnosis/Indication Diagnosis SNOMED-CT Code Diagnosis ICD10 Code Diagnosis Note [id number] MD Reggie Felton 14 OB [address] [place] [address] 04/18/2024 09:22:35 05/07/2024 08:28:47 Normal 95961152 Z34.90 [id number] MD Reggie Felton 14 OB [address] [place] [address] 05/10/2024 09:25:35 05/11/2024 08:46:04 Normal 95133242 Z34.02 Early stag e of [id number] Z34.90 [id number] MD Reggie Felton 14 OB [address] [place] [address] 07/02/2024 11:54:00 07/03/2024 08:55:16 Normal 32394417 Z34.02 [id number] MD Reggie Felton 14 OB [address] [place] [address] 07/23/2024 11:40:58 07/24/2024 09:41:11 Normal [id number] Z34.02 [id number] MD Reggie Felton 14 OB 4 [facility] [place] [address] 08/20/2024 10:45:57 08/27/2024 12:50:57 Normal 34096849 Z34.02 [id number] MD Reggie Felton 14 OB [address] [facility] [address] [place] [address] 09/10/2024 10:32:43 09/13/2024 16:11:50 Normal 93930133 Z34.02 [id number] MD Reggie Felton 14 OB [address] [facility] [place] [address] 10/02/2024 14:32:33 10/08/2024 13:04:47 Normal 99644170 Z34.02 [id number] MD Reggie Felton 14 OB [address] [facility] [place] [address] 10/16/2024 10:33:59 10/16/2024 11:31:15 Normal 44686060 Z34.02 Administra tion of diphtheria, pertussis, and tetanus vaccine 480007867 Z23 Health Concerns Section Related Observation LastModified by Organization Detai ls LastModified Time None Recorded Concern Status LastModified by Organization Details LastModified Time None Recorded Advance Directives Directive None Recorded Payers Encounter Date Sequence Insurance Name Policy Number Policy Lares Covered Member ID Lares Member ID Guarantor Name 07/23/2024 1 [place] [facility] (MEDICAID REPLACEMENT - HMO) [id number] Preeti Escamillas [id number] Preeti Duarte 08/20/2024 1 [place] [facility] (MEDICAID REPLACEMENT - HMO) [id number] Preeti Duarte [id number] Preeti Duarte 09/10/2024 1 [place] [facility] (MEDICAID REPLACEMENT - HMO) [id number] Preeti Duarte [id number] Preeti Duarte 10/02/2024 1 [place] [facility] (MEDICAID REPLACEMENT - HMO) [id number] Preeti Duarte [id number] Preeti Duarte 10/16/2024 1 [place] [facility] (MEDICAID REPLACEMENT - HMO) [id number] Preeti Duarte [id number] Preeti Duarte OBGyn Episode Ob Episode Information Episode Created Date Number of Fetuses Patient Bloodtype Patient rh Status Prepregnancy Weight lbs Domestic Partner Domestic Partner Phone Father Name Railroad Detective Status 04/18/20 24 1 O Positive OPEN Fetus Data First Name Last Name Admitted to NICU Weight (g) Sex Living Outcome Pediatric Complications Fetus ID Race Codes Race Delivery Type [id number] Tom Calculation Initial Tom Date Initial Exam Date Initial Exam Provider Initial Ultrasound Date Last Menstrual Period Date Ultra Sound Weeks Gestation 11/21/2024 04/18/2024 05/18/2024 02/15/2024 13 Eighteen To Twenty Week Tom Update Ultra Sound Date Fundal Height At Umbil Quickening Date Ultra Sound Latest Weeks Gestation Final Tom Confirmed By Final Tom Confirmed Date Final Tom Date Ultra Sound Latest Days Gestation 07/10/20 24 21 1 Pre-kasie Flowsheet Flowsheet Date 04/18/2024 Adams Score Blood Edema Fundus Height Fundus Units Glucose Ketones Leukocytes Nitrite Labor Signs Protein Cervic Dilation Cervic Effacement Cervic Station 9 wks 0cm 0% -4 Type Weight in lbs Pre/Post Dialysis Refused With clothes 242.2173760309 BP Diastolic BP Location Tested BP Systolic BP Type 84 L arm 121 sitting Fetus Heart Rate Present Fetus Movement Comments Otherwise healthy 34 y.o. fo rmer patient of Dr Elena's who presents at 9 weeks for new OB visithas a history of hysteroscopy with polyp removal and PCOS per pt normal new examwill get labs, f/u 2 weeks for FHTS Flowsheet Date 05/10/2024 Adams Score Blood Edema Fundus Height Fundus Units Glucose Ketones Leukocytes Nitrite Labor Signs Protein Cervic Dilation Cervic Effacement Cervic Station none neg Type Weight in lbs Pre/Post Dialysis Refused With clothes 242.578442358403 BP Diastolic BP Location Tested BP Systolic BP Type 84 L arm 120 sitting Fetus Heart Rate Present Fetus Movement Comments Unable to hear FHTs today. P ossibly body habitus, possibly not as far along as previously believed.will get an early US for EDCdiscussed HSV@ + test. Gave a note for dentist Flowsheet Date 07/02/2024 Adams Score Blood Edema Fundus Height Fundus Units Glucose Ketones Leukocytes Nitrite Labor Signs Protein Cervic Dilation Cervic Effacement Cervic Station none neg Type Weight in lbs Pre/Post Dialysis Refused With clothes 249.554322291292 BP Diastolic BP Location Tested BP Systolic BP Type 79 L arm 123 sitting Fetus Heart Rate Present A 152 Fetus Movement A Yes Comments Had an early US that confirm s 11/21/24 EDCgood spiritsno longer nauseatedBaby is girl Flowsheet Date 07/23/2024 Adams Score Blood Edema Fundus Height Fundus Units Glucose Ketones Leukocytes Nitrite Labor Signs Protein Cervic Dilation Cervic Effacement Cervic Station 22 wks none neg Type Weight in lbs Pre/Post Dialysis Refused With clothes 257.925805915855 BP Diastolic BP Location Tested BP Systolic BP Type 80 L arm 126 sitting Fetus Heart Rate Present A 152 Fetus Movement Comments Doing OK, active babyHad two US done since last visit, no reports available as of yetdiscussed congestion/mucous relief. Will fetr fam med to look in ear if worsenspinched nerve likely in footplan sugar test here in 4 weeks Flowsheet Date 08/20/2024 Adams Score Blood Edema Fundus Height Fundus Units Glucose Ketones Leukocytes Nitrite Labor Signs Protein Cervic Dilation Cervic Effacement Cervic Station none 25 cm none none neg Type Weight in lbs Pre/Post Dialysis Refused With clothes 258.600868556954 BP Diastolic BP Location Tested BP Systolic BP Type 85 R arm 129 sitting Fetus Heart Rate Present A 160 Present Fetus Movement A Yes Comments 26 5/7 weeks doing wellsugar test ongoing todayno new issues or complaints Flowsheet Date 09/10/2024 Adams Score Blood Edema Fundus Height Fundus Units Glucose Ketones Leukocytes Nitrite Labor Signs Protein Cervic Dilation Cervic Effacement Cervic Station none 29 cm none none 1+ Type Weight in lbs Pre/Post Dialysis Refused With clothes 257.82310515868 BP Diastolic BP Location Tested BP Systolic BP Type 83 L arm 120 sitting Fetus Heart Rate Present A 152 Fetus Movement Comments Failed 1 hr, passed 3 hr GTT activebabyno ctx.some muscle cramps, no edema, good spirits Flowsheet Date 10/02/2024 Adams Score Blood Edema Fundus Height Fundus Units Glucose Ketones Leukocytes Nitrite Labor Signs Protein Cervic Dilation Cervic Effacement Cervic Station none 31 cm none none trace Type Weight in lbs Pre/Post Dialysis Refused With clothes 260.814679603756 BP Diastolic BP Location Tested BP Systolic BP Type 86 L arm 132 sitting Fetus Heart Rate Present A 156 Fetus Movement A Yes Comments active babyno ctxdiscussed p elvic pressure and next visit GBS Flowsheet Date 10/16/2024 Adams Score Blood Edema Fundus Height Fundus Units Glucose Ketones Leukocytes Nitrite Labor Signs Protein Cervic Dilation Cervic Effacement Cervic Station none 34 cm none none trace Type Weight in lbs Pre/Post Dialysis Refused With clothes 264.191073129092 BP Diastolic BP Location Tested BP Systolic BP Type 87 L arm 148 sitting Fetus Heart Rate Present A 153 Present Fetus Movement A Yes Comments Elevated BP todayPt reports some LLQ pain ( has had some GI issues recently)denies ctxactive babyGBS done todaywill send to L&D for BP monitoring , possible labsf/u 1 week if all goes well on L&D Menstrual History Last Menstrual Date Menses Monthly On Bcp Conception Prior Menses Frequency Hcg Plus Date Menarche Onset Age 0602/15/2024 true false Delivery Information Delivery Date Delivery Type Labor Anesthesia Weeks Gestation Incision Type Labor Labor Length Hrs Delivered By Post Complications Tubal Sterilization Discharge Date Comments Discharge Information Feeding Method Contraceptive Method Maternal HG B and HCT Levels
--- OUTSIDE RECORDS SUMMARY | 2024-10-19 15:48 | XMS_ITS | Clinical Summary ---
Author Organization [facility] Address [address] [place] [id number] Care Team Providers Care Graphics Intern Name Role Phone No, Physician Primary Care Provider [phone] No, Physician Unavailable Allergies Active Allergy Reactions Criticality Noted Date Comments Fish Containing Products Hives Medium 05/10/2019 Iodine Hives Medium 05/10/2019 Medications PNV #[id number] acid-dha 35 mg iron-5 mg iron-1 mg capsule Take 2 Gum by mouth daily Active iron bisgly,ps-FA-B-C #12-succ 65 mg-65 mg -1,000 mcg (24) tablet Take by mouth Active albuterol (PROAIR RESPICLICK) 90 mcg/actuation inhaler Inhale 2 puffs every 6 (six) hours as needed for wheezing Active nitrofurantoin monohydrate (MACROBID) 100 mg capsule Take 1 capsule (100 mg total) by mouth 2 (two) times a day 14 capsule 4 10/03/19 25 Discontinu ed(Therapy completed) Active Problems Estimated Date of Delivery Comme nts Yes 11/20/2024 Based on Patient Reported No known active problems Encounters Date Type Department Care Team Description 10/16/2024 10:47 AM ZONE MANAGER - 10/16/2024 11:58 AM ZONE MANAGER Hospital Encounter [facility] [address] [place] [address] [phone] Rakan Moreau MD Discharge Disposition: Discharge to home or self care 10/11/2024 10:34 AM ZONE MANAGER - 10/11/2024 4:00 PM ZONE MANAGER Hospital Encounter [facility] [address] [place] [address] Rakan Moreau MD Discharge Disposition: Discharge to home or self care 10/03/2024 9:25 AM ZONE MANAGER - 10/03/2024 11:04 AM ZONE MANAGER Hospital Encounter [facility] [place] [address] [place] [address] Rakan Moreau MD Discharge Disposition: Discharge to home or self care 07/24/2024 11:13 PM ZONE MANAGER - 07/25/2024 12:30 AM ZONE MANAGER Hospital Encounter [facility] [address] [address] Rakan Moreau MD Discharge Disposition: Discharge to home or self care from Last 3 Months Medical History Medical History Date Comments Anxiety Asthma PCOS (polycystic ovarian syndrome) Social History Tobacco Use Types Packs/Day Years Used Date Smoking Tobacco: Never Smokeless Tobacco: Never Alcohol Use Standard Drinks/Week Comments Not Currently 0 (1 standard drink = 0.6 oz pur e alcohol) Social Connection and Isolat ion Panel [NHANES] Answer Date Recorded In a typical week, how many times do you talk on the phone with family, friends, or neighbors? More than three times a week 10/11/2024 How often do you get togethe r with friends or relatives? More than three times a week 10/11/2024 How often do you attend [facility] or oriental orthodox services? More than 4 times per year 10/11/2024 Do you belong to any clubs o r organizations such as latter-day groups, unions, fraternal or athletic groups, or school groups? No 10/11/2024 How often do you attend meet ings of the clubs or organizations you belong to? Never 10/11/2024 Are you , , di vorced, , never , or living with a partner? 10/11/2024 AUDIT-C Answer Date Recorded Q1: How often do you have a drink containing alcohol? Never 10/11/2024 Q2: How many drinks containi ng alcohol do you have on a typical day when you are drinking? Patient does not drink Q3: How often do you have si x or more drinks on one occasion? Never 10/11/2024 Overall Financial Resource Strain (CARDIA) Answe r Date Recorded How hard is it for you to pa y for the very basics like food, housing, medical care, and heating? Not hard at all 10/11/2024 PHQ-2 Answer Date Recorded PHQ-2 Total Score (If total score is 3 or more points, staff should administer the PHQ-9) 0 10/11/2024 [facility] - Occupational Stress Questionnaire Answer Date Recorded Do you feel stress - tense, restless, nervous, or anxious, or unable to sleep at night because your mind is troubled all the time - these days? Not at all 10/11/2024 Exercise Vital Sign Answer Date Recorde d On average, how many days pe r week do you engage in moderate to strenuous exercise (like a brisk walk)? 0 days 10/11/2024 On average, how many minutes do you engage in exercise at this level? 0 min 10/11/2024 Hunger Vital Sign Answer Date Recorded Within the past 12 months, y ou worried that your food would run out before you got the money to buy more. Never true 10/11/19 25 Within the past 12 months, t he food you bought just didn't last and you didn't have money to get more. Never true 10/11/2024 PRAPARE - Transportation Answer Date Re corded In the past 12 months, has l ack of transportation kept you from medical appointments or from getting medications? No 09/14 In the past 12 months, has l ack of transportation kept you from meetings, work, or from getting things needed for daily living? No 10/11/2024 Housing Stability Vital Sign Answer Mario e Recorded In the last 12 months, was t here a time when you were not able to pay the mortgage or rent on time? No 10/11/2024 In the past 12 months, how m any times have you moved where you were living? 1 10/11/2024 At any time in the past 12 m onths, were you homeless or living in a assisted (including now)? No 10/11/2024 Personal Safety Answer Date Recorded Have you ever been in or are you currently in a harmful physical or emotional relationship or is someone making you feel afraid or unsafe? Denies 10/16/2024 Estimated Date of Delivery Comme nts Yes 11/20/2024 Based on Patient Reported Sex and Gender Information Value Date Recorded Sex Assigned at Not on file Legal Sex Female 4:29 PM ZONE MANAGER Gender Identity Not on file Sexual Orientation Not on file Obstetrics History Para Term AB IAB SAB Ectopic Multiple Livin g Live Births 1 Date Outcome GA Total Labor Labor/2nd/3rd Weight Sex Type Anes PTL Charlotte A1 A5 Name Clin Current Summary Episode Dates Number of Fetuses Estimated Date of Delivery 07/06/2024 - Present (10/19/2024) 11/20/2024 (set by Manisha Rivera RN on 07/24/2024 based on Patient Reported) Dating Summary Based On NEELA GA Diff Patient Reported 11/20/2024 Working Vitals Date GA Fund Present FHR Mvmt BP Weight Edema Alb Glu Ket Dil/ Eff/Sta 4 20w3d Inpatient data not displayed here. See encounter summary. 4 23w1d Inpatient data not displayed here. See encounter summary. 5 33w1d Inpatient data not displayed here. See encounter summary. 5 34w2d Inpatient data not displayed here. See encounter summary. 5 35w0d Inpatient data not displayed here. See encounter summary. Notes Progress Notes - Hospital En counter - 07/06/2024 - GA:20w3d 07/06/2024 - 20w3d - Renuka Patel RN Pt here with report that she works nights and when she went to the bathroom at 0200 this am she saw pink on the tissue. She denies any further pink when wiping since then. Pt denied any cramping feelings. 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 No lesions were observed per this nurse. Pt denies ever having an outbreak. Orders received for discharge. Follow up and D/C instructions including labor reviewed with pt. Pt stated understanding and denied any questions or concerns at this time. Ambulated out of L&D with no apparent distress. Renuka Amaya RN Last Filed Vital Signs Vital Sign Reading Time Taken Comments Blood Pressure 128/80 10/16/2024 11:35 AM ZONE MANAGER Pulse 78 10/16/2024 11:35 AM ZONE MANAGER Temperature 36.6 C (97.9 F) 07/06/2024 6:44 AM CDT Respiratory Rate 18 07/06/2024 6:44 AM CDT Oxygen Saturation 98% 06/15/2024 9:30 AM CDT Inhaled Oxygen Concentration - - Weight 104.3 kg (230 lb) 06/15/2024 7:54 AM CDT Height 160 cm (5' 3 ) 06/15/2024 7:54 AM CDT Body Mass Index 40.74 06/15/2024 7:54 AM CDT Plan of Treatment Upcoming Encounters Date Type Department Care Team (Late st Contact Info) Description 11/21/2024 Hospital Encounter [facility] [address] [place] [address] Rakan Moreau MD [address] [place] [address] [address] [place] [address] Health Maintenance Due Date Last Done Comments Cervical Cancer Screening 1992 Hepatitis C Screening 1992 Varicella Vaccines (1 of 2 - 13+ 2-dose series) 01/04/2005 Regular Well Visit/Exam 18-64 01/04/2010 HPV Vaccines (3 - 3-dose series) 05/01/2014 02/06/2014, 04/24/2007 DTaP/Tdap/Td Vaccine (2 - Td or Tdap) 04/24/2017 04/24/2007 Covid-19 Vaccine (3 - season) 2024 01/20/2022, 05/17/2021 Influenza Vaccine (#1) 2024 06/08/2016 Depression Screening 10/03/2025 10/03/2024, 07/25/2024, 07/06/2024, Additional history exists Pneumococcal vaccine <65 Aged Out No longer eligible based on patient's age to complete this topic Procedures Procedure Name Priority Date/Time Associated Diagnosis Comments URINALYSIS AND REFLEX TO MICROSCOPIC STAT 10/16/2024 11:06 AM ZONE MANAGER URINALYSIS, MICROSCOPIC ONLY STAT 10/11/2024 2:13 PM ZONE MANAGER URINE CULTURE STAT 10/11/2024 2:13 PM ZONE MANAGER URINALYSIS AND REFLEX TO MICROSCOPIC AND CULTURE STAT 10/11/2024 2:13 PM ZONE MANAGER URINALYSIS, MICROSCOPIC ONLY STAT 10/11/2024 11:02 AM ZONE MANAGER PAMG-1 PROTEIN MARKER (ROM) Routine 10/11/2024 11:02 AM ZONE MANAGER URINE CULTURE STAT 10/11/2024 11:02 AM ZONE MANAGER URINALYSIS AND REFLEX TO MICROSCOPIC AND CULTURE STAT 10/11/2024 11:02 AM ZONE MANAGER URINALYSIS, MICROSCOPIC ONLY STAT 10/03/2024 9:50 AM ZONE MANAGER URINE CULTURE STAT 10/03/2024 9:50 AM ZONE MANAGER URINALYSIS AND REFLEX TO MICROSCOPIC AND CULTURE STAT 10/03/2024 9:50 AM ZONE MANAGER URINALYSIS, MICROSCOPIC ONLY Routine 07/24/2024 11:52 PM ZONE MANAGER URINE CULTURE Routine 07/24/2024 11:52 PM ZONE MANAGER URINALYSIS AND REFLEX TO MICROSCOPIC AND CULTURE Routine 07/24/2024 11:52 PM ZONE MANAGER from Last 3 Months Results * Urinalysis reflex to microscopic (10/16/2024 11:06 AM ZONE MANAGER) Color, ur Straw Yellow Clarity, ur Clear Clear [facility] ([place]) Specific gravity, ur 1.003 1.003 - 1.030 [facility] ([place]) pH, urine 6.0 [facility] ([place]) Comment: Interpretive Data U rine pH is affected by diet, medications, systemic acid-base disturbances, and renal tubular function. pH may affect urinary stone formation. For example, urine pH below 6.0 may help reduce the tendency for calcium phosphate stones and pH greater than 6.0 may reduce the tendency for uric acid stone formation. Source: [facility] Current Interpretive Data was last revised on 2017 Protein, ur ql Negative Negative [facility] ([place]) Glucose, ur ql Negative Negative [facility] ([place]) Ketones, ur Negative Negative [facility] ([place]) Bilirubin, ur Negative Negative [facility] ([place]) Blood, ur Negative Negative [facility] ([place]) Urobilinogen, ur <2.0 <2.0 mg/dL [facility] ([place]) Nitrite, ur Negative Negative [facility] ([place]) Leukocyte esterase, ur Negative Negative [facility] ([place]) UA reflex comment Reflex conditions for microscopic UA not met. [facility] ([place]) Urine 10/16/2024 11:0 6 AM ZONE MANAGER 10/16/2024 11:16 AM ZONE MANAGER us Rakan Moreau MD LAB URINE ORDERABLES F inal Result [facility] ([place]) 1 [facility] Department [place] [address] * (ABNORMAL) Urinalysis reflex to microscopic and culture Urine, clean voided (10/11/2024 2:13 PM ZONE MANAGER) Color, ur Yellow Yellow Clarity, ur Turbid(A) Clear [facility] ([place]) Specific gravity, ur 1.029 1.003 - 1.030 [facility] ([place]) pH, urine 6.0 [facility] ([place]) Comment: Interpretive Data U rine pH is affected by diet, medications, systemic acid-base disturbances, and renal tubular function. pH may affect urinary stone formation. For example, urine pH below 6.0 may help reduce the tendency for calcium phosphate stones and pH greater than 6.0 may reduce the tendency for uric acid stone formation. Source: [facility] Current Interpretive Data was last revised on 2017 Protein, ur ql 1+(A) Negative [facility] ([place]) Glucose, ur ql Negative Negative [facility] ([place]) Ketones, ur Trace Negative [facility] ([place]) Bilirubin, ur Negative Negative [facility] ([place]) Blood, ur Trace(A) Negative [facility] ([place]) Urobilinogen, ur <2.0 <2.0 mg/dL [facility] ([place]) Nitrite, ur Positive(A) Negative [facility] ([place]) Leukocyte esterase, ur 4+(A) Negative [facility] ([place]) UA reflex comment Reflex to microscopic UA will be performed. [facility] ([place]) Urine, clean voided 10/11/2024 2:13 PM ZONE MANAGER 10/11/2024 2:18 PM ZONE MANAGER Rakan Moreau MD LAB MICROBIOLOGY - GEN ERAL ORDERABLES Final Result Performing Organization Address [facility] de Phone Number [facility] ([place]) 1 [facility] Department [place] [address] * (ABNORMAL) Urinalysis, microscopic only (10/11/2024 2:13 PM ZONE MANAGER) WBC, ur >50(A) 0 - 5 /HPF RBC, ur 11-20(A) 0 - 2 /HPF [facility] ([place]) Epithelial cells, squamous, ur 6-10(A) 0 - 5 /HPF [facility] ([place]) Yeast, ur Trace(A) [facility] ([place]) Mucous, ur Present(A) [facility] ([place]) Culture Reflex Comment Reflex to urine culture will be performed. [facility] ([place]) Urine, clean voided 10/11/2024 2:13 PM ZONE MANAGER 10/11/2024 2:18 PM ZONE MANAGER Rakan Moreau MD LAB URINE ORDERABLES F inal Result [facility] ([place]) 1 [facility] [place] [address] * Urine culture Urine, clean voided (10/11/2024 2:13 PM ZONE MANAGER) Report Final Report: Less than 100,000 colonies/mL (clinically insignificant growth based on current clinical standards) Comment:Testing performed by : [facility], [address] [place]., [address] Organism (CLINICALLY INSIGNIFICANT GROWTH [facility] ([place]) Urine, clean voided 10/11/2024 2:13 PM ZONE MANAGER 10/11/2024 5:55 PM ZONE MANAGER Narrative [facility] ([place]) - 10/12/2024 7:56 PM ZONE MANAGER Urine culture reflexed based upon urinalysis results. Testing performed by [facility] Microbiology Laboratory ([phone]) Rakan Moreau MD LAB MICROBIOLOGY - GEN ERAL ORDERABLES Final Result Performing Organization Address [facility]/ZIP Co de Phone Number [facility] ([place]) 1 [place] [address] * ROM Plus (IGFBP-1/AFP) (10/11/2024 11:02 AM ZONE MANAGER) Pathologist [facility] IFG Binding Protein-1 / AFP Negative Swab 10/11/2024 11:0 2 AM ZONE MANAGER 10/11/2024 11:11 AM ZONE MANAGER Rakan Moreau MD LAB BODY FLUIDS AND ST OOLS ORDERABLES Final Result Performing Organization Address City/[facility]/ZIP Co de Phone Number [facility] ([place]) 1 [facility] [place] [address] * (ABNORMAL) Urinalysis reflex to microscopic and culture Urine, clean voided (10/11/2024 11:02 AM ZONE MANAGER) Color, ur [place] Clarity, ur Turbid(A) Clear [facility] ([place]) Specific gravity, ur 1.024 1.003 - 1.030 [facility] ([place]) pH, urine 5.5 [facility] ([place]) Comment: Interpretive Data U rine pH is affected by diet, medications, systemic acid-base disturbances, and renal tubular function. pH may affect urinary stone formation. For example, urine pH below 6.0 may help reduce the tendency for calcium phosphate stones and pH greater than 6.0 may reduce the tendency for uric acid stone formation. Source: [facility] [employer] Current Interpretive Data was last revised on 2017 Protein, ur ql 2+(A) Negative [facility] ([place]) Glucose, ur ql Negative Negative [facility] ([place]) Ketones, ur Trace Negative [facility] ([place]) Bilirubin, ur Negative Negative [facility] ([place]) Blood, ur Trace(A) Negative [facility] ([place]) Urobilinogen, ur <2.0 <2.0 mg/dL [facility] ([place]) Nitrite, ur Positive(A) Negative [facility] ([place]) Leukocyte esterase, ur 4+(A) Negative [facility] ([place]) UA reflex comment Reflex to microscopic UA will be performed. [facility] ([place]) Urine, clean voided 10/11/2024 11:02 AM ZONE MANAGER 10/11/2024 11:11 AM ZONE MANAGER us Rakan Moreau MD LAB MICROBIOLOGY - GEN ERAL ORDERABLES Final Result [facility] ([place]) 1 [facility] Department [place] [address] * (ABNORMAL) Urinalysis, microscopic only (10/11/2024 11:02 AM ZONE MANAGER) WBC, ur >50(A) 0 - 5 /HPF RBC, ur 11-20(A) 0 - 2 /HPF [facility] ([place]) Epithelial cells, squamous, ur 11-20(A) 0 - 5 /HPF [facility] ([place]) Comment:Suggestive of contam ination. Consider recollection by clean catch. Bacteria, ur 1+(A) [facility] ([place]) Mucous, ur Present(A) [facility] ([place]) Calcium oxalate crystals, ur 1+(A) [facility] ([place]) Culture Reflex Comment Reflex to urine culture will be performed. [facility] ([place]) Urine, clean voided 10/11/2024 11:02 AM ZONE MANAGER 10/11/2024 11:11 AM ZONE MANAGER Rakan Moreau MD LAB URINE ORDERABLES F inal Result Performing Organization Address [facility] Co de Phone Number [facility] ([place]) 1 [facility] Department [place] [address] * (ABNORMAL) Urine culture Urine, clean voided (10/11/2024 11:02 AM ZONE MANAGER) Report Final Report: Greater than or equal to 100,000 colonies/mL of Escherichia coli (.) Comment:Testing performed by : [facility], 1 [place]., [address] Organism ESCHERICHIA COLI [facility] ([place]) Urine, clean voided 10/11/2024 11:02 AM ZONE MANAGER 10/11/2024 2:27 PM ZONE MANAGER Narrative [facility] ([place]) - 10/13/2024 10:19 AM ZONE MANAGER Urine culture reflexed based upon urinalysis results. Testing performed by [facility]biology Laboratory ([phone]) Organism Antibiotic Method Susceptibility Escherichia coli Ampicillin INTERPRETATION Resistant Escherichia coli Cefazolin INTERPRETATION Susceptible Escherichia coli Nitrofurantoin INTERPRETATION Susceptible Escherichia coli Gentamicin INTERPRETATION Susceptible Escherichia coli Trimethoprim with Sulfamethoxazole IN TERPRETATION Resistant Escherichia coli Meropenem INTERPRETATION Susceptible Escherichia coli Cefepime INTERPRETATION Susceptible Escherichia coli Ciprofloxacin INTERPRETATION Susceptible Escherichia coli Ceftazidime INTERPRETATION Susceptible Escherichia coli Ceftriaxone INTERPRETATION Susceptible Escherichia coli Piperacillin/Tazobactam INTERPRETATIO N Susceptible Escherichia coli Cephalexin INTERPRETATION Susceptible Escherichia coli Cefuroxime-axetil INTERPRETATION Susceptible Escherichia coli Cefdinir INTERPRETATION Susceptible Rakan Moreau MD LAB MICROBIOLOGY - GEN ERAL ORDERABLES Final Result [facility] ([place]) 1 [facility] Department [place] [address] * (ABNORMAL) Urinalysis reflex to microscopic and culture Urine, clean voided (10/03/2024 9:50 AM ZONE MANAGER) Color, ur Yellow Yellow Clarity, ur Turbid(A) Clear [facility] ([place]) Specific gravity, ur 1.022 1.003 - 1.030 [facility] ([place]) pH, urine 5.5 [facility] ([place]) Comment: Interpretive Data U rine pH is affected by diet, medications, systemic acid-base disturbances, and renal tubular function. pH may affect urinary stone formation. For example, urine pH below 6.0 may help reduce the tendency for calcium phosphate stones and pH greater than 6.0 may reduce the tendency for uric acid stone formation. Source: [facility] Current Interpretive Data was last revised on 2017 Protein, ur ql 2+(A) Negative [facility] ([place]) Glucose, ur ql Negative Negative [facility] ([place]) Ketones, ur Trace Negative [facility] ([place]) Bilirubin, ur Negative Negative [facility] ([place]) Blood, ur 2+(A) Negative [facility] ([place]) Urobilinogen, ur <2.0 <2.0 mg/dL [facility] ([place]) Nitrite, ur Negative Negative [facility] ([place]) Leukocyte esterase, ur 4+(A) Negative [facility] ([place]) UA reflex comment Reflex to microscopic UA will be performed. [facility] ([place]) Urine, clean voided 10/03/2024 9:50 AM ZONE MANAGER 10/03/2024 9:56 AM ZONE MANAGER us Rakan Moreau MD LAB MICROBIOLOGY - GEN ERAL ORDERABLES Final Result [facility] ([place]) 1 [facility] Department [place] [address] * (ABNORMAL) Urinalysis, microscopic only (10/03/2024 9:50 AM ZONE MANAGER) WBC, ur >50(A) 0 - 5 /HPF RBC, ur 21-50(A) 0 - 2 /HPF [facility] ([place]) Epithelial cells, squamous, ur 11-20(A) 0 - 5 /HPF [facility] ([place]) Bacteria, ur Trace(A) [facility] ([place]) Mucous, ur Present(A) [facility] ([place]) Culture Reflex Comment Reflex to urine culture will be performed. [facility] ([place]) Urine, clean voided 10/03/2024 9:50 AM ZONE MANAGER 10/03/2024 9:56 AM ZONE MANAGER us Rakan Moreau MD LAB URINE ORDERABLES F inal Result [facility] ([place]) 1 [facility] Department [place] [address] * (ABNORMAL) Urine culture Urine, clean voided (10/03/2024 9:50 AM ZONE MANAGER) Report Final Report: Greater than or equal to 100,000 colonies/mL of Escherichia coli Plus growth of clinically insignificant bacterial maryjo. (.) Comment:Testing performed by : [facility], 1 [place]., [address] Organism ESCHERICHIA COLI [facility] ([place]) Organism PLUS GROWTH OF CLINICALLY INSIGNIFICANT MARYJO. [facility] ([place]) Urine, clean voided 10/03/2024 9:50 AM ZONE MANAGER 10/03/2024 11:50 AM ZONE MANAGER Narrative [facility] ([place]) - 10/05/2024 11:06 AM ZONE MANAGER Urine culture reflexed based upon urinalysis results. Testing performed by [facility]biology Laboratory ([phone]) Organism Antibiotic Method Susceptibility Escherichia coli Ampicillin INTERPRETATION Resistant Escherichia coli Cefazolin INTERPRETATION Susceptible Escherichia coli Nitrofurantoin INTERPRETATION Susceptible Escherichia coli Gentamicin INTERPRETATION Susceptible Escherichia coli Trimethoprim with Sulfamethoxazole IN TERPRETATION Resistant Escherichia coli Meropenem INTERPRETATION Susceptible Escherichia coli Cefepime INTERPRETATION Susceptible Escherichia coli Ciprofloxacin INTERPRETATION Susceptible Escherichia coli Ceftazidime INTERPRETATION Susceptible Escherichia coli Ceftriaxone INTERPRETATION Susceptible Escherichia coli Piperacillin/Tazobactam INTERPRETATIO N Susceptible Escherichia coli Cephalexin INTERPRETATION Susceptible Escherichia coli Cefuroxime-axetil INTERPRETATION Susceptible Escherichia coli Cefdinir INTERPRETATION Susceptible us Rakan Moreau MD LAB MICROBIOLOGY - GEN ERAL ORDERABLES Final Result [facility] ([place]) 1 [facility] Department [place] [address] * (ABNORMAL) Urinalysis reflex to microscopic and culture Urine (07/24/2024 11:52 PM ZONE MANAGER) Color, ur Yellow Yellow Clarity, ur Turbid(A) Clear [facility] ([place]) Specific gravity, ur 1.020 1.003 - 1.030 [facility] ([place]) pH, urine 7.0 [facility] ([place]) Comment: Interpretive Data U rine pH is affected by diet, medications, systemic acid-base disturbances, and renal tubular function. pH may affect urinary stone formation. For example, urine pH below 6.0 may help reduce the tendency for calcium phosphate stones and pH greater than 6.0 may reduce the tendency for uric acid stone formation. Source: [facility] Current Interpretive Data was last revised on 2017 Protein, ur ql Trace Negative [facility] ([place]) Glucose, ur ql Negative Negative [facility] ([place]) Ketones, ur Negative Negative [facility] ([place]) Bilirubin, ur Negative Negative [facility] ([place]) Blood, ur Negative Negative [facility] ([place]) Urobilinogen, ur <2.0 <2.0 mg/dL [facility] ([place]) Nitrite, ur Negative Negative [facility] ([place]) Leukocyte esterase, ur 1+(A) Negative [facility] (REGGIE) UA reflex comment Reflex to microscopic UA will be performed. [facility] (REGGIE) Urine 07/24/2024 11:5 2 PM ZONE MANAGER 07/24/2024 11:57 PM ZONE MANAGER us Rakan Moreau MD LAB MICROBIOLOGY - GEN ERAL ORDERABLES Final Result Performing Organization Address City/[facility]/ZIP Co de Phone Number [facility] (REGGIE) 1 [facility] Department [place] [address] * (ABNORMAL) Urinalysis, microscopic only (07/24/2024 11:52 PM ZONE MANAGER) WBC, ur 11-20(A) 0 - 5 /HPF RBC, ur 0-2 0 - 2 /HPF [facility] (REGGIE) Epithelial cells, squamous, ur 6-10(A) 0 - 5 /HPF [facility] (REGGIE) Bacteria, ur 1+(A) [facility] (REGGIE) Mucous, ur Present(A) [facility] (REGGIE) Culture Reflex Comment Reflex to urine culture will be performed. [facility] (REGGIE) Urine 07/24/2024 11:5 2 PM ZONE MANAGER 07/24/2024 11:57 PM ZONE MANAGER us Rakan Moreau MD LAB URINE ORDERABLES F inal Result [facility] (REGGIE) [address] [place] [address] Department [place] [address] * (ABNORMAL) Urine culture Urine (07/24/2024 11:52 PM ZONE MANAGER) Report Final Report: Greater than or equal to 100,000 colonies/mL of Escherichia coli Plus growth of clinically insignificant bacterial maryjo. (.) Comment:Testing performed by : [facility], 1 [place]., [address] Organism ESCHERICHIA COLI [facility] (REGGIE) Organism PLUS GROWTH OF CLINICALLY INSIGNIFICANT MARYJO. [facility] (REGGIE) Urine 07/24/2024 11:5 2 PM ZONE MANAGER 07/25/2024 4:46 AM ZONE MANAGER Narrative [facility] (REGGIE) - 07/27/2024 12:47 PM ZONE MANAGER Urine culture reflexed based upon urinalysis results. Testing performed by [facility] Microbiology Laboratory ([phone]) Organism Antibiotic Method Susceptibility Escherichia coli Ampicillin INTERPRETATION Resistant Escherichia coli Cefazolin INTERPRETATION Susceptible Escherichia coli Nitrofurantoin INTERPRETATION Susceptible Escherichia coli Gentamicin INTERPRETATION Susceptible Escherichia coli Trimethoprim with Sulfamethoxazole IN TERPRETATION Resistant Escherichia coli Meropenem INTERPRETATION Susceptible Escherichia coli Cefepime INTERPRETATION Susceptible Escherichia coli Ciprofloxacin INTERPRETATION Susceptible Escherichia coli Ceftazidime INTERPRETATION Susceptible Escherichia coli Ceftriaxone INTERPRETATION Susceptible Escherichia coli Piperacillin/Tazobactam INTERPRETATIO N Susceptible Escherichia coli Cephalexin INTERPRETATION Susceptible Escherichia coli Cefuroxime-axetil INTERPRETATION Susceptible Escherichia coli Cefdinir INTERPRETATION Susceptible us Rakan Moreau MD LAB MICROBIOLOGY - GEN ERAL ORDERABLES Final Result [facility] ([place]) 1 [facility] [place] [address] from Last 3 Months Insurance [facility] CHOICE PLUS [facility] IDPA [facility] PLAN e. [address] [place] [address] [facility] Care Teams Graphics Intern Relationship Specialty Start Date End Date No, Physician PCP - General 04/12/19 No, Physician 04/12/19
--- OUTSIDE RECORDS SUMMARY | 2024-10-19 15:48 | XMS_ITS | Referral Summary ---
Author Organization [facility] Address 1 [place] [address] Care Team Providers Care Service Clerk Name Role Phone No, Physician Primary Care Provider [phone] No, Physician Unavailable Encounters Date Type Department Care Team Description 10/16/2024 10:47 AM MARKETING PROFESSIONAL - 10/16/2024 11:58 AM MARKETING PROFESSIONAL Hospital Encounter [address] [address] Rakan Moreau MD Discharge Disposition: Discharge to home or self care 10/11/2024 10:34 AM MARKETING PROFESSIONAL - 10/11/2024 4:00 PM MARKETING PROFESSIONAL Hospital Encounter [address] [address] Rakan Moreau MD Discharge Disposition: Discharge to home or self care 10/03/2024 9:25 AM MARKETING PROFESSIONAL - 10/03/2024 11:04 AM MARKETING PROFESSIONAL Hospital Encounter [address] [address] Rakan Moreau MD Discharge Disposition: Discharge to home or self care 07/24/2024 11:13 PM MARKETING PROFESSIONAL - 07/25/2024 12:30 AM MARKETING PROFESSIONAL Hospital Encounter [address] [address] Rakan Moreau MD Discharge Disposition: Discharge to home or self care from Last 3 Months Allergies Active Allergy Reactions Criticality Noted Date Comments Fish Containing Products Hives Medium 05/10/2019 Iodine Hives Medium 05/10/2019 Medications PNV #[id number] acid-dha 35 mg iron-5 mg iron-1 mg [...] on Patient Reported No known active problems Social History Tobacco Use Types Packs/Day Years [...] week 10/11/2024 How often do you attend chur or judaism services? More than 4 times per year 10/11/2024 Do you belong to any clubs o r organizations such as druze groups, unions, fraternal or athletic groups, or [...] staff should administer the PHQ-9) 0 10/11/2024 [facility] - Occupational Stress Questionnaire Answer Date Recorded [...] any time in the past 12 m [facility], were you homeless or living in a correction (including now)? No 10/11/2024 Personal Safety Answer [...] on file Legal Sex Female 4:29 PM MARKETING PROFESSIONAL Gender Identity Not on file Sexual Orientation Not on file Last Filed Vital Signs Vital Sign Reading Time Taken Comments Blood Pressure 128/80 10/16/2024 11:35 AM MARKETING PROFESSIONAL Pulse 78 10/16/2024 11:35 AM MARKETING PROFESSIONAL Temperature 36.6 C (97.9 F) 07/06/2024 6:44 [...] st Contact Info) Description 11/21/2024 Hospital Encounter [facility] 1 [place] [address] Rakan Moreau MD [address] [place] [address] [address] SNY[address] [address] Procedures Procedure Name Priority Date/Time Associated Diagnosis Comments URINALYSIS AND REFLEX TO MICROSCOPIC STAT 10/16/2024 11:06 AM MARKETING PROFESSIONAL URINALYSIS, MICROSCOPIC ONLY STAT 10/11/2024 2:13 PM MARKETING PROFESSIONAL URINE CULTURE STAT 10/11/2024 2:13 PM MARKETING PROFESSIONAL URINALYSIS AND REFLEX TO MICROSCOPIC AND CULTURE STAT 10/11/2024 2:13 PM MARKETING PROFESSIONAL URINALYSIS, MICROSCOPIC ONLY STAT 10/11/2024 11:02 AM MARKETING PROFESSIONAL PAMG-1 PROTEIN MARKER (ROM) Routine 10/11/2024 11:02 AM MARKETING PROFESSIONAL URINE CULTURE STAT 10/11/2024 11:02 AM MARKETING PROFESSIONAL URINALYSIS AND REFLEX TO MICROSCOPIC AND CULTURE STAT 10/11/2024 11:02 AM MARKETING PROFESSIONAL URINALYSIS, MICROSCOPIC ONLY STAT 10/03/2024 9:50 AM MARKETING PROFESSIONAL URINE CULTURE STAT 10/03/2024 9:50 AM MARKETING PROFESSIONAL URINALYSIS AND REFLEX TO MICROSCOPIC AND CULTURE STAT 10/03/2024 9:50 AM MARKETING PROFESSIONAL URINALYSIS, MICROSCOPIC ONLY Routine 07/24/2024 11:52 PM MARKETING PROFESSIONAL URINE CULTURE Routine 07/24/2024 11:52 PM MARKETING PROFESSIONAL URINALYSIS AND REFLEX TO MICROSCOPIC AND CULTURE Routine 07/24/2024 11:52 PM MARKETING PROFESSIONAL from Last 3 Months Results * Urinalysis reflex to microscopic (10/16/2024 11:06 AM MARKETING PROFESSIONAL) Color, ur Straw Yellow Clarity, ur Clear Clear [facility] (REGGIE) Specific gravity, ur 1.003 1.003 - 1.030 [...] tendency for uric acid stone formation. Source: [employer] Current Interpretive Data was last revised on 2017 Protein, ur ql Negative Negative [facility] (REGGIE) Glucose, ur ql Negative Negative [facility] (REGGIE) Ketones, ur Negative Negative [facility] (REGGIE) Bilirubin, ur Negative Negative [facility] (REGGIE) Blood, ur Negative Negative [facility] (REGGIE) Urobilinogen, ur <2.0 <2.0 mg/dL [facility] (REGGIE) Nitrite, ur Negative Negative CERNER A (REGGIE) Leukocyte esterase, ur Negative Negative [facility] (REGGIE) UA reflex comment Reflex conditions for microscopic UA not met. [facility] (REGGIE) Urine 10/16/2024 11:0 6 AM MARKETING PROFESSIONAL 10/16/2024 11:16 AM MARKETING PROFESSIONAL us Rakan Moreau MD LAB URINE ORDERABLES F inal Result [facility] (REGGIE) 1 [facility] Department [place] [address] * (ABNORMAL) Urinalysis reflex to microscopic and culture Urine, clean voided (10/11/2024 2:13 PM MARKETING PROFESSIONAL) Color, ur Yellow Yellow Clarity, ur Turbid(A) Clear CERNER A (REGGIE) Specific gravity, ur 1.029 1.003 - [...] tendency for uric acid stone formation. Source: [facility] [employer] Current Interpretive Data was last revised on [...] (REGGIE) Urine, clean voided 10/11/2024 2:13 PM MARKETING PROFESSIONAL 10/11/2024 2:18 PM MARKETING PROFESSIONAL Rakan Moreau MD LAB MICROBIOLOGY - GEN ERAL ORDERABLES Final Result Performing Organization Address [facility]/ZIP Co de Phone Number TIM EATON (REGGIE) 1 [facility] [place] [address] * (ABNORMAL) Urinalysis, microscopic only (10/11/2024 2:13 PM MARKETING PROFESSIONAL) WBC, ur >50(A) 0 - 5 /HPF RBC, ur 11-20(A) 0 - 2 /HPF TIM EATON (REGGIE) Epithelial cells, squamous, ur 6-10(A) 0 - 5 /HPF [facility] (REGGIE) Yeast, ur Trace(A) TIM [facility] (REGGIE) Mucous, ur Present(A) CERNER A (REGGIE) Culture Reflex Comment Reflex to urine culture will be performed. TIM EATON (REGGIE) Urine, clean voided 10/11/2024 2:13 PM MARKETING PROFESSIONAL 10/11/2024 2:18 PM MARKETING PROFESSIONAL Rakan Moreau MD LAB URINE ORDERABLES F inal Result Performing Organization Address [facility]/ZIP Co de Phone Number TIM [facility] (REGGIE) 1 [facility] [place] [address] * Urine culture Urine, clean voided (10/11/2024 2:13 PM MARKETING PROFESSIONAL) Report Final Report: Less than 100,000 colonies/mL (clinically insignificant growth based on current clinical standards) Comment:Testing performed by : [facility], 1 [facility], [place]., [address] Organism (CLINICALLY INSIGNIFICANT GROWTH TIM EATON (REGGIE) Urine, clean voided 10/11/2024 2:13 PM MARKETING PROFESSIONAL 10/11/2024 5:55 PM MARKETING PROFESSIONAL Narrative TIM EATON (REGGIE) - 10/12/2024 7:56 PM MARKETING PROFESSIONAL Urine culture reflexed based upon urinalysis results. Testing performed by [facility] Microbiology Laboratory ([phone]) Rakan Moreau MD LAB MICROBIOLOGY - GEN ERAL ORDERABLES Final Result Performing Organization Address City/[facility]/ZIP Co de Phone Number TIM EATON (REGGIE) 1 [facility] [place] [address] * ROM Plus (IGFBP-1/AFP) (10/11/2024 11:02 AM MARKETING PROFESSIONAL) IFG Binding Protein-1 / AFP Negative Swab 10/11/2024 11:0 2 AM MARKETING PROFESSIONAL 10/11/2024 11:11 AM MARKETING PROFESSIONAL Rakan Moreau MD LAB BODY FLUIDS AND ST OOLS ORDERABLES Final Result Performing Organization Address [facility] de Phone Number TIM EATON (REGGIE) 1 [facility] Department [place] [address] * (ABNORMAL) Urinalysis reflex to microscopic and culture Urine, clean voided (10/11/2024 11:02 AM MARKETING PROFESSIONAL) Color, ur Light-[place] Clarity, ur Turbid(A) Clear [facility] (REGGIE) Specific gravity, ur 1.024 1.003 - 1.030 [facility] (REGGIE) pH, urine 5.5 TIM EATON (REGGIE) Comment: Interpretive Data U rine pH is affected by diet, medications, systemic acid-base disturbances, and renal tubular function. pH may affect urinary stone formation. For example, urine pH below 6.0 may help reduce the tendency for calcium phosphate stones and pH greater than 6.0 may reduce the tendency for uric acid stone formation. Source: [facility] [employer] Current Interpretive Data was last revised on [...] Reflex to microscopic UA will be performed. [facility] (REGGIE) Urine, clean voided 10/11/2024 11:02 AM MARKETING PROFESSIONAL 10/11/2024 11:11 AM MARKETING PROFESSIONAL Rakan Moreau MD LAB MICROBIOLOGY - GEN ERAL ORDERABLES Final Result Performing Organization Address [facility]/ZIP Co de Phone Number TIM [facility] (REGGIE) 1 [facility] [employer] [place] [employer] [address] * (ABNORMAL) Urinalysis, microscopic only (10/11/2024 11:02 AM MARKETING PROFESSIONAL) WBC, ur >50(A) 0 - 5 /HPF RBC, ur 11-20(A) 0 - 2 /HPF [facility] (REGGIE) Epithelial cells, squamous, ur 11-20(A) 0 - 5 /HPF [facility] (REGGIE) Comment:Suggestive of contam ination. Consider recollection by clean catch. Bacteria, ur 1+(A) [facility] (REGGIE) Mucous, ur Present(A) [facility] (REGGIE) Calcium oxalate crystals, ur 1+(A) [facility] (REGGIE) Culture Reflex Comment Reflex to urine culture will be performed. [facility] (REGGIE) Urine, clean voided 10/11/2024 11:02 AM MARKETING PROFESSIONAL 10/11/2024 11:11 AM MARKETING PROFESSIONAL Rakan Moreau MD LAB URINE ORDERABLES F inal Result Performing Organization Address [facility]/ZIP Co de Phone Number [facility] (REGGIE) 1 [facility] [place] [address] * (ABNORMAL) Urine culture Urine, clean voided (10/11/2024 11:02 AM MARKETING PROFESSIONAL) Report Final Report: Greater than or equal to 100,000 colonies/mL of Escherichia coli (.) Comment:Testing performed by : [facility], 1 [place] [address] Organism ESCHERICHIA COLI TIM [facility] (REGGIE) Urine, clean voided 10/11/2024 11:02 AM MARKETING PROFESSIONAL 10/11/2024 2:27 PM MARKETING PROFESSIONAL Narrative TIM [facility] (REGGIE) - 10/13/2024 10:19 AM MARKETING PROFESSIONAL Urine culture reflexed based upon urinalysis results. Testing performed by [facility] Microbiology Laboratory ([phone]) Organism Antibiotic Method Susceptibility Escherichia coli Ampicillin [...] - GEN ERAL ORDERABLES Final Result TIM [facility] ([place]) 1 [facility] Department [place] [address] * (ABNORMAL) Urinalysis reflex to microscopic and culture Urine, clean voided (10/03/2024 9:50 AM MARKETING PROFESSIONAL) Color, ur Yellow Yellow Clarity, ur Turbid(A) Clear TIM Evans (REGGIE) Specific gravity, ur 1.022 1.003 - 1.030 TIM [facility] (REGGIE) pH, urine 5.5 TIM [facility] (REGGIE) Comment: Interpretive Data U rine pH is affected by diet, medications, systemic acid-base disturbances, and renal tubular function. pH may affect urinary stone formation. For example, urine pH below 6.0 may help reduce the tendency for calcium phosphate stones and pH greater than 6.0 may reduce the tendency for uric acid stone formation. Source: [facility] Current Interpretive Data was last revised [...] (REGGIE) Urine, clean voided 10/03/2024 9:50 AM MARKETING PROFESSIONAL 10/03/2024 9:56 AM MARKETING PROFESSIONAL Rakan Moreau MD LAB MICROBIOLOGY - GEN ERAL ORDERABLES Final Result Performing Organization Address [facility] Co de Phone Number STACYDARLING EATON (REGGIE) 1 [facility] Department [place] [address] * (ABNORMAL) Urinalysis, microscopic only (10/03/2024 9:50 AM MARKETING PROFESSIONAL) WBC, ur >50(A) 0 - 5 /HPF RBC, ur 21-50(A) 0 - 2 /HPF [facility] (REGGIE) Epithelial cells, squamous, ur 11-20(A) 0 - 5 /HPF [facility] (REGGIE) Bacteria, ur Trace(A) [facility] (REGGIE) Mucous, ur Present(A) [facility] A [facility] (REGGIE) Culture Reflex Comment Reflex to urine culture will be performed. [facility] (REGGIE) Urine, clean voided 10/03/2024 9:50 AM MARKETING PROFESSIONAL 10/03/2024 9:56 AM MARKETING PROFESSIONAL Rakan Moreau MD LAB URINE ORDERABLES F inal Result Performing Organization Address [facility]/State/ZIP Co de Phone Number [facility] (REGGIE) 1 [facility] Department [place] [address] * (ABNORMAL) Urine culture Urine, clean voided (10/03/2024 9:50 AM MARKETING PROFESSIONAL) Report Final Report: Greater than or equal to 100,000 colonies/mL of Escherichia coli Plus growth of clinically insignificant bacterial anupam. (.) Comment:Testing performed by : [facility], 1 [place]., [address] Organism ESCHERICHIA COLI [facility]ER [facility] (REGGIE) Organism PLUS GROWTH OF CLINICALLY INSIGNIFICANT ANUPAM. [facility] (REGGIE) Urine, clean voided 10/03/2024 9:50 AM MARKETING PROFESSIONAL 10/03/2024 11:50 AM MARKETING PROFESSIONAL Narrative [facility] (REGGIE) - 10/05/2024 11:06 AM MARKETING PROFESSIONAL Urine culture reflexed based upon urinalysis results. Testing performed by [facility] Microbiology Laboratory ([phone]) Organism Antibiotic Method Susceptibility Escherichia coli Ampicillin [...] ORDERABLES Final Result TIM EATON (REGGIE) 1 [facility] Department [place] [address] * (ABNORMAL) Urinalysis reflex to microscopic and culture Urine (07/24/2024 11:52 PM MARKETING PROFESSIONAL) Color, ur Yellow Yellow Clarity, ur Turbid(A) Clear CERNER A (REGGIE) Specific gravity, ur 1.020 1.003 - [...] tendency for uric acid stone formation. Source: [facility] [employer] Current Interpretive Data was last revised on [...] [facility] (REGGIE) Urine 07/24/2024 11:5 2 PM MARKETING PROFESSIONAL 07/24/2024 11:57 PM MARKETING PROFESSIONAL us Rakan Moreau MD LAB MICROBIOLOGY - GEN ERAL ORDERABLES Final Result [facility] (REGGIE) 1 [facility] Department [place] [address] * (ABNORMAL) Urinalysis, microscopic only (07/24/2024 11:52 PM MARKETING PROFESSIONAL) WBC, ur 11-20(A) 0 - 5 /HPF RBC, ur 0-2 0 - 2 /HPF [facility] (REGGIE) Epithelial cells, squamous, ur 6-10(A) 0 - 5 /HPF [facility] (REGGIE) Bacteria, ur 1+(A) [facility] (REGGIE) Mucous, ur Present(A) [facility] A [facility] (REGGIE) Culture Reflex Comment Reflex to urine culture will be performed. [facility] (REGGIE) Urine 07/24/2024 11:5 2 PM MARKETING PROFESSIONAL 07/24/2024 11:57 PM MARKETING PROFESSIONAL us Rakan Moreau MD LAB URINE ORDERABLES F inal Result Performing Organization Address City/[facility]/ZIP Co de Phone Number TIM EATON (REGGIE) 1 [facility] Department [place] [address] * (ABNORMAL) Urine culture Urine (07/24/2024 11:52 PM MARKETING PROFESSIONAL) Report Final Report: Greater than or equal to 100,000 colonies/mL of Escherichia coli Plus growth of clinically insignificant bacterial anupam. (.) Comment:Testing performed by : [facility], 1 [place]., [address] Organism ESCHERICHIA COLI CER NER [facility] (REGGIE) Organism PLUS GROWTH OF CLINICALLY INSIGNIFICANT ANUPAM. TIM [facility] (REGGIE) Urine 07/24/2024 11:5 2 PM MARKETING PROFESSIONAL 07/25/2024 4:46 AM MARKETING PROFESSIONAL Narrative [facility] (REGGIE) - 07/27/2024 12:47 PM MARKETING PROFESSIONAL Urine culture reflexed based upon urinalysis results. Testing performed by [facility] Microbiology Laboratory ([phone]) Organism Antibiotic Method Susceptibility Escherichia coli Ampicillin [...] ORDERABLES Final Result TIM EATON (REGGIE) 1 [facility] [place] [address] from Last 3 Months Insurance [facility] PLAN [facility] Care Teams Service Clerk Relationship Specialty Start Date End Date No, Physician PCP - General 04/12/19 No, Physician 04/12/19
--- OUTSIDE RECORDS SUMMARY | 2024-10-19 15:48 | XMS_ITS | Encounter Summary ---
Author Organization [facility] Address [address] [place] [address] Phone Care Team Providers Care Insurance Claim Representative Name Role Phone Provider, None Primary Care Provider Unavailabl e Encounter Details Date Type Department Care Team (Late st Contact Info) Description 05/30/2024 Lab Requisition [facility] 1 [place] [address] Vince Thorne, PAC [address] [place] [address] Encounter for pre-employment examination Social History Tobacco Use Types Packs/Day Years Used Date Smoking Tobacco: Never Assessed Comments Unknown Sex and Gender Information Value Date Recorded Sex Assigned at Not on file Legal Sex Female 11:38 AM CDT Gender Identity Not on file Sexual Orientation Not on file documented as of this encounter Plan of Treatment Not on file documented as of this encounter Procedures Procedure Name Priority Date/Time Associated Diagnosis Comments QUANTIFERON-TB GOLD PLUS Routine 05/30/2024 10:15 AM CDT Encounter for pre-employment examination documented in this encounter Results * QUANTIFERON-TB GOLD PLUS (05/30/2024 10:15 AM CDT) NIL CONTROL 0.00 <8.01 IU/mL 06/01/2024 11:52 AM CDT [facility] TB ANTIGEN 1 0.00 <0.35 IU/mL 06/01/2024 11:52 AM CDT [facility] TB ANTIGEN 2 0.00 <0.35 IU/mL 06/01/2024 11:52 AM CDT [facility] MITOGEN CONTROL 10.00 >0.49 IU/mL 06/01/20 11:52 AM CDT [facility] INTEPRETATION TB NEGATIVE NEGATIVE, NEGATIVE (TB antigen response less than 25% of internal negative control value) 06/01/2024 11:52 AM CDT [facility] Comment:No immune response t o Mycobacterium tuberculosis antigens was noted. M. tuberculosis infection unlikely. Blood No Phlebotomy Charged / Unknown 05/30/2024 10:15 AM CDT 05/30/2024 12:21 PM CDT Narrative [facility] - 06/01/2024 11:52 AM CDT A POSITIVE QUANTIFERON-TB GOLD PLUS RESULT SHOULD NOT BE THE SOLE OR DEFINITIVE BASIS FOR DETERMINING INFECTION WITH M.TUBERCULOSIS. Diagnosing or excluding tuberculosis disease, and assessing the probability of LTBI, requires a combination of epidemiological, historical, medical and diagnostic findings (e.g., acid fast bacilli (AFB) smear and culture, chest xray) that should be taken into account when interpreting QFT-Plus results. Furthermore, the magnitude of the measured gamma interferon level cannot be correlated to stage or degree of infection, level of immune responsiveness, or likelihood for progression to active disease. The Nil control adjusts for background (e.g., elevated levels of circulating gamma interferon or presence of heterophile antibodies). The Mitogen control serves as an internal positive control and verifies each specimen tested can produce a gamma interferon response. Low mitogen may occur with insufficient lymphocytes, reduced lymphocyte activity due to improper specimen handling, filling/mixing of the mitogen tube, or inability of the patient's lymphocytes to generate gamma interferon. Infection with other Mycobacteria, including M. kansasii, M. szulgai, and M. marinum, may cause false positive results. A negative QuantiFERON-TB Gold Plus result does not preclude the possibility of M. tuberculosis infection or tuberculosis disease: false negative results can be due to incorrect blood sample collection/ improper handling of the specimen, stage of infection (e.g., specimen obtained prior to the development of cellular immune response), co-morbid conditions which affect immune function, or other individual immunological factors. The minimum number of lymphocytes required for a reliable test has not been established and may also be variable. Diagnostic testing for Mycobacterium tuberculosis using Interferon Gamma Release Assays should follow applicable published guidelines, including when testing in populations such as children, women, and HIV-infected or otherwise immunocompromised individuals. https://www.cdc.gov/tb/publications/guidelines/testing.htm us Vince Thorne [facility] IMMUNOLOGY ORDERABLES Final Result [facility] [address] [place] [address], documented in this encounter Visit Diagnoses Diagnosis Encounter for pre-employment examination Health examination of defined subpopulation documented in this encounter Care Teams Insurance Claim Representative Relationship Specialty Start Date End Date Provider, None [place] PCP - General 05/30/24 documented as of this encounter
--- NOTE | 2024-10-19 16:18 | OBADM ---
This patient, Preeti Duarte, admitted to the OB room [facility] for observation. Patient/family oriented to hospital policies and general routines including ID bracelet, bed and alarms, visiting hours, pain management, procedures, bathroom and other care routines, personal items, smoking policy, room service/diet, and visiting hours. Patient/Family are encouraged to report perceived risks to care and to ask questions if they do not understand what they are told or what they should do.
[2024-10-19 16:50] LABS: Add Urine Microscopic? YES; Appearance Urine Cloudy (Clear); Bacteria Urine 4+ /hpf; Bilirubin Urine Negative (Negative); Blood Urine Negative (Negative); Calcium Oxalate Crystals Urine Present /hpf; Color Urine Yellow (Yellow); Glucose Urine UA Negative (Negative); Ketones Urine Trace mg/dL (Negative); Leukocyte Esterase Ur 1+ LEU/UL (Negative); Nitrate Urine Positive (Negative); Non Pathogenic Casts 0-2; Protein Urine 1+ mg/dL (Negative); RBC Urine 0-2 /hpf (0-2); Specific Grav Ur 1.027 (1.001-1.035); Squamous Epithelial Cell Urine Moderate /hpf (Few); Urobilinogen Urine 0.2 mg/dL (<2.0); WBC Urine 21-50 /hpf (0-3); pH Urine 5.5 (5.0-9.0)
--- NOTE | 2024-10-25 07:52 | PM.OBTRLD ---
OB - Triage/Final Diagnosis Visit Information Reason for evaluation: threatened labor Comments/Additional reasons for admission: I have assessed the risk for this patient, Preeti Duarte, and determined that she would benefit from observation care. Evaluation Laboratory results: Laboratory Tests 10/19/24 16:09 Urine Color Yellow Urine Appearance Cloudy H Urine pH 5.5 Ur Specific [place] 1.027 Urine Protein 1+ H Urine Glucose (UA) Negative Urine Ketones Trace H Ur Blood (Man) Negative Urine Nitrate Positive H Urine Bilirubin Negative Urine Urobilinogen 0.2 Leukocyte Esterase Rfl 1+ H Urine RBC 0-2 Urine WBC 21-50 H Ur Squamous Epith Cells Moderate Calcium Oxalate Crystal Present Urine Bacteria 4+ H Urine Casts 0-2
== END 2024-10-19 17:58 | disposition home or self-care (01) ==
LOC: ANHOBPP 15:46
PROVIDERS: Admitting Provider Obstetrics & Gynecology Gynecology; Visit Provider Obstetrics & Gynecology Gynecology
DX: O47.9 False labor, unspecified (principal); Z3A.00 Weeks of gestation of pregnancy not specified
CPT/HCPCS: 59025; 81001; G0378; G0379

== ENCOUNTER 2024-11-09 23:51 | Emergency (ER) | payer BC, SELFPAY ==
[2024-11-09 23:56] VITALS: BP 164/95; PULSE 77; RESP 20; TEMP 36.4; O2SAT 100
[2024-11-10 02:48] LABS: Basophils Percent Auto 0.5 % (0.2-1.2); Eosinophils Absolute Auto 0.2 K/mm3 (0-0.3); Hematocrit 31.3 % (37.0-47.0); Hemoglobin 9.7 g/dL (12.0-15.0); Immature Granulocyte Absolute 0.06 K/mm3 (0.00-0.031); Immature Granulocyte Percent A 0.7 % (0-0.5); Lymphocytes Absolute Auto 2.27 K/mm3 (0.9-3.2); Lymphocytes Percent Auto 25.7 % (18.3-44.2); Mean Corpuscular Hemoglobin 26.9 pg (26-34); Mean Corpuscular Volume 86.7 fl (80-100); Mean Platelet Volume 10.4 fl (7.4-10.4); Monocytes Absolute Auto 0.6 K/mm3 (0.1-0.6); Monocytes Percent Auto 6.3 % (2.6-8.5); Neutrophils Absolute Auto 5.7 K/mm3 (1.3-6.7); Neutrophils Percent Auto 64.8 % (45.5-73.1); Platelet Count Result 319 k/mm3 (150-375); Red Blood Count 3.61 M/mm3 (4.2-5.4); Red Cell Distribution Width 14.5 % (11.5-14.5); White Blood Count 8.8 K/mm3 (4.5-10.0)
[2024-11-10 02:55] LABS: Total Protein Urine Random 58 mg/dL
[2024-11-10 02:58] LABS: BEDSIDEPREGUCG Negative (Negative)
[2024-11-10 03:02] LABS: Alanine Aminotransferase 21 U/L (6-35); Albumin Level 3.4 g/dL (3.5-5.1); Alkaline Phosphatase 136 U/L (38-126); Anion Gap 9 mmol/L (4-12); Aspartate Amino Transferase 23 U/L (14-36); Bilirubin,Total 0.3 mg/dL (0.2-1.3); Blood Urea Nitrogen 18 mg/dL (7-17); Calcium 8.6 mg/dL (8.4-10.2); Carbon Dioxide 25 mmol/L (22-30); Chloride 104 mmol/L (98-107); Estimated CRCL calculation 97 ml/min; Estimated Glomerular Filt Rate > 60; Glucose 99 mg/dL (65-110); Lactate Dehydrogenase 203 U/L (120-246); Magnesium 1.9 mg/dL (1.6-2.3); Potassium 3.8 mmol/L (3.4-5.0); Sodium 138 mmol/L (137-145)
[2024-11-10 03:05] LABS: Add Urine Microscopic? YES; Appearance Urine Cloudy (Clear); Bacteria Urine 4+ /hpf; Bilirubin Urine Negative (Negative); Blood Urine 3+ (Negative); Color Urine Yellow (Yellow); Glucose Urine UA Negative (Negative); Ketones Urine Trace mg/dL (Negative); Leukocyte Esterase Ur 1+ LEU/UL (Negative); Need Manual Microscopic Reviewed; Nitrate Urine Positive (Negative); Non Pathogenic Casts 0-2; Protein Urine 2+ mg/dL (Negative); RBC Urine 0-2 /hpf (0-2); Specific Grav Ur 1.022 (1.001-1.035); Squamous Epithelial Cell Urine Few /hpf (Few); WBC Urine 51-100 /hpf (0-3)
--- NOTE | 2024-11-10 03:53 | ED.EXTPRO ---
HPI - Extremity Problem General Chief complaint: Extremity Problem,Nontraumatic Stated complaint: Recent delivery, BLE swelling Time Seen by Provider: 11/10/24 02:15 History of Present Illness HPI Narrative: 34-year-old otherwise healthy female presenting to the emergency department for evaluation of bilateral lower extremity swelling. She recently gave on 11/03/2024 with an uncomplicated section. Her course was not complicated, she started having elevated blood pressure readings towards the 2nd half and minimal proteinuria but her primary care and OBGYN have ruled out preeclampsia normal outpatient labs. Patient notes that she does have proteinuria however her doctor's ruled out preeclampsia with 24 hour urine collection and laboratory studies as well as blood pressure readings. She has been having swelling her legs since before delivering her baby and notes that they get better with elevation and rest. Denies any shortness a breath, chest pain, nausea, vomiting. Patient was concerned about her leg swelling so she came to the ER today for evaluation. No history of heart failure, eating and drinking okay, went to her OBGYN today to get her stitches removed from her scar and they appear clean, dry, no signs of active infection Related Data Allergies Allergy/AdvReac Type Severity Reaction Status Date / Time iodine Allergy Unknown Rash Verified 11/09/24 23:59 SEAFOOD Allergy Severe Anaphylaxis Uncoded 11/09/24 23:59 Review of Systems Review of Systems: As reviewed above in HPI [facility] Past Medical History Medical History Patient denies significant medical history Social History Social History Smoking status: Never smoker Exam Narrative: GENERAL: Obese, not in any acute distress HEAD: [Normocephalic, atraumatic.] EYES: [PERRLA and EOMI.] ENT: Nares clear, no rhinorrhea or epistaxis. Mucous membranes moist. NECK: Supple. CHEST: [Clear to auscultation. No respiratory distress.] HEART: [Regular rate and rhythm]. No murmur heard. [Normal peripheral pulses.] ABDOMEN: [Soft, nondistended], [nontender], [No rigidity or guarding] Caesarean section scar is clean, no dehiscence of the wound, no purulent drainage, no cellulitic skin changes or wounds. EXTREMITIES: Normal range of motion. 1+ pitting edema bilaterally, 2+ pulses, full range of motion, ambulatory SKIN: Warm, dry, no rash. NEURO: [No focal deficits]. Alert and oriented [x3.] PSYCH: [Normal mood and affect.] Course Vital Signs Vital signs: Vital Signs Temperature 36.4 C 11/09/24 23:56 Pulse Rate 77 11/09/24 23:56 Respiratory Rate 20 11/09/24 23:56 Blood Pressure 164/95 H 11/09/24 23:56 Pulse Oximetry 100 11/09/24 23:56 Oxygen Delivery Room Air 11/09/24 23:56 Temperature 36.4 C 11/09/24 23:56 Pulse Rate 77 11/09/24 23:56 Respiratory Rate 20 11/09/24 23:56 Blood Pressure 164/95 H 11/09/24 23:56 Pulse Oximetry 100 11/09/24 23:56 Oxygen Delivery Room Air 11/09/24 23:56 MDM - Extremity (Nontraumatic) MDM Narrative Medical decision making narrative: 34-year-old otherwise healthy female presenting to the emergency department for evaluation of bilateral lower extremity swelling. She had an uncomplicated section delivery of a baby during her last with delivery date 11/03/2024. No history of clamps ER preeclampsia during the but was noted to have proteinuria with elevated blood pressure readings but patient informs me that her OBGYN at [facility] has evaluated her several times for preeclampsia and ruled out with laboratory studies and urine collection studies. Patient was having swelling in both of her legs and notes that it gets better with rest and elevation but was concerned so she came to the ER. She saw her OBGYN this morning and had her sutures removed and given regular follow-up instructions. Patient herself is not any acute distress, in triage is noted to have an elevated blood pressure reading 164/95 however immediately upon placing her on the director of respiratory therapy and in bed resting she is down to 139/84 without any intervention. She was placed on cardiac monitoring telemetry and repeat blood pressure readings throughout the next several hours still ranged in the 130-139 range systolic. She does have what appears to be dependent edema in both her legs. No signs of shortness of breath, nausea, vomiting, patient denies any headache or vision changes. Suspicion presently is for dependent edema with considerations for potential preeclampsia although very unlikely given her outpatient studies and being ruled out by her OBGYN recently. Patient is already delivered and preeclampsia is rare. CBC, CMP, urinalysis, uric acid, spot urine test and magnesium level was obtained. Laboratory studies showed no leukocytosis. Hemoglobin of 9.7 but no baseline in recent labs. Normal platelet count. Chemistry panel shows normal electrolytes, normal renal function, normal hepatic function. Uric acid on the upper side of normal. Slightly low albumin 3.4 which could contribute to the leg swelling. Urinalysis shows signs and symptoms of urine tract infection. 2+ protein and random protein tested 58 which is not severe. Patient was re-evaluated multiple times, remained asymptomatic while here in the emergency department. Her most recent blood pressure is 131/84. She did not receive any medications here in the ED for blood pressure control. Effectively patient has been cleared from potential preeclampsia given her workup here as well as her previous workup by her OBGYN. She is safe and stable for discharge home at this time and was encouraged to follow-up with her OBGYN with regular outpatient visits and was given strict return precautions including development of shortness of breath, blurry vision, headaches, abdominal pain, or severely elevated blood pressure readings at home. Patient verbalized understanding these instructions and was safe for discharge home at this time. We will send the patient home with Keflex for her urinary infection. Lab Data 11/10/24 02:40 11/10/24 02:40 Labs: Lab Results 11/10/24 11/10/24 Range/Units 02:40 02:56 WBC 8.8 (4.5-10.0) K/mm3 RBC 3.61 L (4.2-5.4) M/mm3 Hgb 9.7 L (12.0-15.0) g/dL Hct 31.3 L (37.0-47.0) % MCV 86.7 (80-100) fl MCH 26.9 (26-34) pg MCHC 31.0 L (32-36) g/dl RDW 14.5 (11.5-14.5) % Plt Count 319 (150-375) k/mm3 MPV 10.4 (7.4-10.4) fl Immature Gran % (Auto) 0.7 H (0-0.5) % Neut % (Auto) 64.8 (45.5-73.1) % Lymph % (Auto) 25.7 (18.3-44.2) % [place] % (Auto) 6.3 (2.6-8.5) % Eos % (Auto) 2.0 (0-4.4) % Baso % (Auto) 0.5 (0.2-1.2) % Lymph # (Auto) 2.27 (0.9-3.2) K/mm3 [place] # (Auto) 0.6 (0.1-0.6) K/mm3 Eos # (Auto) 0.2 (0-0.3) K/mm3 Baso # (Auto) 0.0 (0.0-0.1) K/mm3 Abs Immat Gran (auto) 0.06 H (0.00-0.031) K/mm3 Absolute Neuts (auto) 5.7 (1.3-6.7) K/mm3 Absolute Nucleated RBC 0.000 (0.0-0.012) K/mm3 Nucleated RBC % 0.0 (0.0-0.2) % Sodium 138 (137-145) mmol/L Potassium 3.8 (3.4-5.0) mmol/L Chloride 104 (98-107) mmol/L Carbon Dioxide 25 (22-30) mmol/L Anion Gap 9 (4-12) mmol/L BUN 18 H (7-17) mg/dL Creatinine 0.92 (0.7-1.0) mg/dL Estim Creat Clear Calc 97 ml/min Estimated GFR > 60 (59 - ) Glucose 99 (65-110) mg/dL Uric Acid 8.0 H (2.5-7.5) mg/dL Calcium 8.6 (8.4-10.2) mg/dL Magnesium 1.9 (1.6-2.3) mg/dL Total Bilirubin 0.3 (0.2-1.3) mg/dL AST 23 (14-36) U/L ALT 21 (6-35) U/L Alkaline Phosphatase 136 H (38-126) U/L Lactate Dehydrogenase 203 (120-246) U/L Total Protein 7.0 (6.3-8.2) g/dL Albumin 3.4 L (3.5-5.1) g/dL Urine Color Yellow (Yellow) Urine Appearance Cloudy H (Clear) Urine pH 6.0 (5.0-9.0) Ur Specific [place] 1.022 (1.001-1.035) Urine Protein 2+ H (Negative) mg/dL Urine Glucose (UA) Negative (Negative) mg/dL Urine Ketones Trace H (Negative) mg/dL Ur Blood (Man) 3+ H (Negative) Urine Nitrate Positive H (Negative) Urine Bilirubin Negative (Negative) Urine Urobilinogen 1.0 (<2.0) mg/dL Add Ur Microanalysis Reviewed Leukocyte Esterase Rfl 1+ H (Negative) KOBI/UL Urine RBC 0-2 (0-2) /hpf Urine WBC 51-100 H (0-3) /hpf Ur Squamous Epith Cells Few (Few) /hpf Urine Bacteria 4+ /hpf Urine Casts 0-2 U Random Total Protein 58 mg/dL POC Urine HCG, Qual Negative (Negative) Discharge Plan Discharge Clinical Impression: Dependent edema, UTI (urinary tract infection) Patient Disposition: Home, Self-Care Condition: Stable Instructions: Antibiotic Form, Urinary Tract Infection in Women (DC) Additional Instructions: Your leg swelling is likely secondary to dependent edema and not related to any signs or symptoms of elevated blood pressure readings were complications of your . If you develop any shortness of breath, blurry vision, intractable headache, abdominal pain, worsening leg swelling, severely elevated blood pressure readings or any other concerns please call your OBGYN or return to the emergency department. You can take Tylenol and ibuprofen for pain and leg swelling. We will send you home with Keflex for your urinary infection. Patient Language: Korean Prescriptions: New cephalexin 500 mg capsule 500 mg PO Q12H 5 Days Qty: 10 0RF No Action cyclobenzaprine 10 mg tablet 10 mg PO TID PRN (Reason: muscle spasm) Qty: 14 0RF lidocaine 5 % adhesive patch,medicated 1 patch topical DAILY Qty: 1 0RF Rx Instructions: leave on most painful area for up to 12 hrs, dispense one box ibuprofen [IBU] 600 mg tablet 600 mg PO QID PRN (Reason: fever or pain) Qty: 7 0RF famotidine [Pepcid AC] 20 mg tablet 20 mg PO DAILY Qty: 14 0RF dicyclomine 20 mg tablet 20 mg PO TID PRN (Reason: Abdominal cramping) Qty: 10 0RF ibuprofen 600 mg tablet 600 mg PO TID PRN (Reason: pain) Qty: 14 0RF nitrofurantoin monohyd/m-cryst [Macrobid] 100 mg capsule 100 mg PO Q12H 3 Days Qty: 6 0RF Rx Instructions: must administer with a meal/food Follow-up/Referrals: PHYSICIAN,RAW SAMPLER [Primary Care Provider] - Time of Disposition: 04:02
== END 2024-11-10 04:17 | disposition home or self-care (01) ==
PROVIDERS: Emergency Provider Student in an Organized Health Care Education/Training Program
DX: O86.20 Urinary tract infection following delivery, unspecified (principal); N39.0 Urinary tract infection, site not specified; O99.893 Other specified diseases and conditions complicating puerperium; R60.0 Localized edema
CPT/HCPCS: 36415; 80053; 81001; 81025; 81050; 83615; 83735; 84156; 84550; 85025; 87086; 87186; 99283